=== PATIENT | female | born 1940 | race Caucasian/White ===

== ENCOUNTER → 2019-07-18 13:30 | Outpatient (CLI) | payer MEDICARE, SELFPAY ==
--- NOTE | ~2019-07-18 | MR_ITS ---
EXAMINATION: MR brain/brain stem wo con DATE: 07/18/2019 14:24 INDICATION: Persistent headache with blurred vision TECHNIQUE: Magnetic resonance imaging (MRI) of the brain and brainstem was performed without intraven ous contrast. Sequences included sagittal and axial T1-weighted SE, axial diffusion-weighted FS SE, a xial T2*-weighted GRE, axial T2-weighted FLAIR, and axial T2-weighted FSE. Apparent diffusion coeffic ient (ADC) maps were created. COMPARISON: None. FINDINGS: There are no areas of restricted diffusion to suggest acute infarction. No intracranial hemorrhage or abnormal intracranial mass lesion. Bilateral low-lying cerebellar tonsils extending 3-4 mm below the level of the foramen magnum. There are no intraparenchymal signal abnormalities seen on the other pu lse sequences. Mild increased prominence of the subarachnoid spaces overlying the convexities consist ent with mild age-appropriate diffuse volume loss. Basal cisterns are patent and the ventricles are s ymmetric and normal in size. There are no abnormal extra-axial fluid collections. Flow voids are seen in the cerebral arteries on the T2-weighted sequences consistent with their expected patency. Mild m ucosal thickening the bilateral maxillary sinuses. Changes of bilateral intraocular lens replacement. Small bilateral mastoid effusions. IMPRESSION: 1. Bilateral low-lying cerebellar tonsils which extend 3 to 4 mm below the level of the foramen magnu m. Otherwise normal aging brain. Reviewed, dictated and finalized at location A. IMPRESSION: 1. Bilateral low-lying cerebellar tonsils which extend 3 to 4 mm below the leve l of the foramen magnum. Otherwise normal aging brain.
== END ==
PROVIDERS: PCP Family Medicine Adolescent Medicine; Visit Provider Family Medicine Adolescent Medicine
DX: R51 Headache (principal); H53.8 Other visual disturbances
CPT/HCPCS: 70551

== ENCOUNTER 2020-09-28 13:00 | Outpatient (CLI) | payer MEDICARE, SELFPAY | END 2020-09-28 13:01 | disposition home or self-care (01) | PROVIDERS: PCP Family Medicine Adolescent Medicine; Visit Provider Family Medicine Adolescent Medicine | DX: H91.90 Unspecified hearing loss, unspecified ear (principal) | CPT/HCPCS: 99199 ==

== ENCOUNTER 2020-10-08 12:46 | Outpatient (CLI) | payer MEDICARE, SELFPAY | END 2020-10-08 12:47 | disposition home or self-care (01) | LOC: ANHAUDIO 12:47 | PROVIDERS: PCP Family Medicine Adolescent Medicine; Visit Provider Family Medicine Adolescent Medicine | DX: H90.3 Sensorineural hearing loss, bilateral (principal) | CPT/HCPCS: 92557; 92567 ==

== ENCOUNTER → 2020-10-19 12:29 | Outpatient (CLI) | payer MEDICARE, SELFPAY ==
--- NOTE | ~2020-10-19 | MM_ITS ---
EXAMINATION: MM screening payton BI w cmaila HISTORY: Screening mammogram TECHNIQUE: Craniocaudal and mediolateral oblique 3-D tomosynthesis images were obtained and synthetic 2-D images were generated. CAD analysis was submitted and interpreted. COMPARISON: 05/15/2019, 01/2016, 01/05/2015 bilateral digital screening mammogram examinations BREAST PARENCHYMAL COMPOSITION: The breasts are extremely dense, which lowers the sensitivity of mamm ography. FINDINGS: Occasional benign calcifications. There is no evidence of suspicious mass, calcification, o r architectural distortion to suggest malignancy in either breast. There has been no suspicious inter jarrod change. IMPRESSION: 1. No mammographic evidence of malignancy. 2. Recommend routine screening mammography in one year. BI-RADS Category 2: Benign finding(s). Reviewed, dictated and finalized at location A.
== END ==
PROVIDERS: Visit Provider Family Medicine Adolescent Medicine
DX: Z12.31 Encounter for screening mammogram for malignant neoplasm of breast (principal)
CPT/HCPCS: 77063; 77067

== ENCOUNTER → 2021-10-18 11:21 | Outpatient (CLI) | payer MEDICARE, SELFPAY ==
--- NOTE | ~2021-10-18 | XR_ITS ---
XR chest 2V DATE: 10/18/2021 11:40 INDICATION: Shortness of breath TECHNIQUE: PA and lateral views COMPARISON: 11/11/2015 2 view chest FINDINGS: Bilateral hyperinflation with relative flattening the diaphragm and increased retrosternal airspace, consistent with COPD. There is some infiltrate in the anterior lower lung on the lateral view, apparently in the lingula gi miguel the somewhat shaggy left cardiac margin. The lungs otherwise are clear of infiltrate or consolidation. No pleural effusion or pulmonary vascular congestion or pneumothorax. Heart size is within normal limits. Is aortic arch calcification. Diffuse osteopenia. IMPRESSION: Lingular infiltrate and/or atelectasis COPD Reviewed, dictated and finalized at location A.
== END ==
PROVIDERS: PCP Family Medicine Adolescent Medicine; Visit Provider Family Medicine Adolescent Medicine
DX: R06.02 Shortness of breath (principal); J44.9 Chronic obstructive pulmonary disease, unspecified; R91.8 Other nonspecific abnormal finding of lung field
CPT/HCPCS: 71046

== ENCOUNTER → 2021-11-24 11:15 | Outpatient (CLI) | payer MEDICARE, SELFPAY ==
--- NOTE | ~2021-11-24 | MM_ITS ---
EXAMINATION: MM screening payton BI w camila HISTORY: . TECHNIQUE: Craniocaudal and mediolateral oblique 3-D tomosynthesis images were obtained and synthetic 2-D images were generated. CAD analysis was submitted and interpreted. COMPARISON: 10/19/2020, 05/14/2019, 01/2016 bilateral screening mammogram examinations BREAST PARENCHYMAL COMPOSITION: The breasts are extremely dense, which lowers the sensitivity of mamm ography. FINDINGS: There is no evidence of suspicious mass, calcification, or architectural distortion to sugg est malignancy in either breast. There has been no suspicious interval change. IMPRESSION: 1. No mammographic evidence of malignancy. 2. Recommend routine screening mammography in one year. BI-RADS Category 1: Negative Reviewed, dictated and finalized at location A.
== END ==
PROVIDERS: PCP Family Medicine Adolescent Medicine; Visit Provider Family Medicine Adolescent Medicine
DX: Z12.31 Encounter for screening mammogram for malignant neoplasm of breast (principal)
CPT/HCPCS: 77063; 77067

== ENCOUNTER 2022-02-08 14:37 | Outpatient (CLI) | payer MEDICARE, SELFPAY ==
--- NOTE | 2022-02-20 12:58 | WPDPFTINT ---
PFT Procedure Performed PFT Procedure Performed Spirometry with Pre/Post Bronchodilator Plethysmography (Lung Vol) Diffusing Cap (DLCO) Flow Vol Loop PFT Interpretation DOS: 02/08/2022 REQUESTING: Dr. Joy REASON FOR TESTING: Dyspnea PULMONARY FUNCTION TESTS Results are reliable and reproducible. Spirometry: Pre bronchodilator FEV1 1.99 L, 108%, normal. Pre bronchodilator FVC 2.85 L, 117%, normal. FEV1/FVC 70%, normal. After bronchodilator therapy there is no change in the FEV1. There is 4% change in the FVC, 2.96 L, insignificant. Lung volumes: Total lung capacity 5.88 L, 120% predicted. This is upper limit of normal. Residual volume 3.04 L, 129%, upper limit normal. RV/TLC is 52% normal. Diffusion: DLCO is 11.1 ml/min/mmHg, 59% predicted which is moderately decreased. DLCO/VA is 2.84 ml/min/mmHg/L, 68%, lower end of normal. Flow volume loop: Unremarkable. IMPRESSION: Normal spirometry without response to bronchodilator, normal lung volumes with a trend towards hyperinflation and air trapping, moderate diffusion impairment. The main abnormality on this study is abnormal diffusion impairment. Isolated diffusion impairment can be seen in?early interstitial lung disease,? anemia, chronic thromboembolic disease or chronic thromboembolic pulmonary hypertension, pulmonary vascular disease including collagen vascular disease with pulmonary vascular involvement and smoking. Clinical correlation is advised.? Sanjuana Chavez MD
== END 2022-02-08 14:38 | disposition home or self-care (01) ==
PROVIDERS: PCP Family Medicine Adolescent Medicine; Visit Provider Family Medicine Adolescent Medicine
DX: R06.00 Dyspnea, unspecified (principal)
CPT/HCPCS: 94060; 94726; 94729

== ENCOUNTER 2022-04-10 10:55 | Outpatient (CLI) | payer MEDICARE, SELFPAY ==
--- NOTE | ~2022-04-10 | CT_ITS ---
CT Scan of the Chest without Contrast: Clinical Indication: Shortness of breath, rheumatoid arthritis, covid 19 Technique: Contiguous sections were acquired throughout the chest without intravenous contrast. Dose reduction technique was used on this scan by utilizing automated exposure control and iterative recon struction technique. The dose-length product (DLP) was 133.30 mGy-cm. Findings: There is no evidence of any significant mediastinal, hilar or axillary lymphadenopathy. The mediastin al soft tissues appear normal. There is no evidence of pleural or pericardial effusion. There is minimal scarring in the right middle lobe and lingula. There are scattered focal areas of mi ld tree-in-bud opacity, predominantly in the right middle lobe, lingula, and left lower lobe. Images through the upper abdomen reveal no abnormalities. Impression: Scattered focal areas of tree-in-bud opacity predominantly in the right middle lobe, lingula, and lef t lower lobe, with additional superimposed scarring in the right middle lobe and lingula. Finding are consistent with acute on chronic small airways infection, such as ANUEL. Reviewed, dictated and finalized at [facility]. [employer] Impression: Scattered focal areas of tree-in-bud opacity predominantly in the right middle lobe, lingula, and left lower lobe, with additional superimposed scarring in th e right middle lobe and lingula. Finding are consistent with acute on chronic s mall airways infection, such as ANUEL.
== END 2022-04-10 10:56 | disposition home or self-care (01) ==
PROVIDERS: PCP Family Medicine Adolescent Medicine; Visit Provider Physician Assistant
DX: R06.09 Other forms of dyspnea (principal)
CPT/HCPCS: 71250

== ENCOUNTER 2022-08-28 09:50 | Outpatient (CLI) | payer MEDICARE, SELFPAY | END 2022-08-28 09:51 | disposition home or self-care (01) | LOC: ANHAUDIO 09:51 | PROVIDERS: PCP Family Medicine Adolescent Medicine; Visit Provider Family Medicine Adolescent Medicine | DX: H91.13 Presbycusis, bilateral (principal) | CPT/HCPCS: 92557; 92567 ==

== ENCOUNTER 2022-09-21 07:43 | Outpatient (RCR) | payer MEDICARE, SELFPAY | END 2022-09-21 23:59 | disposition home or self-care (01) | LOC: ANHAUDIO 07:43 | PROVIDERS: PCP Family Medicine Adolescent Medicine; Visit Provider Family Medicine Adolescent Medicine | DX: Z46.1 Encounter for fitting and adjustment of hearing aid (principal) | CPT/HCPCS: 92593 ==

== ENCOUNTER → 2022-11-27 15:34 | Outpatient (CLI) | payer MEDICARE, SELFPAY ==
--- NOTE | ~2022-11-27 | XR_ITS ---
EXAMINATION:XR_CERV2-3V_CR DATE: 11/27/2022 16:01 INDICATION: Neck pain TECHNIQUE: AP, lateral, lateral swimmers and odontoid views of the cervical spine are provided. COMPARISON: None FINDINGS: Exaggerated cervical lordosis. One-2 mm anterolisthesis C4 on C5, C5 on C6 and C7 on T1. 102 mm retro listhesis C6 on C7. Vertebral body heights are normal. Severe disc height loss at C5-C6 and C6-C7. Mi ld disc height loss at C3-C4 with suggestion of posterior bridging osteophytes. Odontoid is intact. M oderate osteoarthritis at the atlantoaxial articulation. Multilevel severe bilateral cervical facet a nd uncovertebral osteoarthritis. Prevertebral soft tissues are normal. Visualized apices of lungs ar e clear. IMPRESSION: 1. Severe cervical spondylosis. Reviewed, dictated and finalized at location B.
== END ==
PROVIDERS: Visit Provider Nurse Practitioner Family
DX: M47.892 Other spondylosis, cervical region (principal)
CPT/HCPCS: 72040

== ENCOUNTER 2022-12-22 13:38 | Outpatient (CLI) | payer MEDICARE, SELFPAY ==
--- NOTE | ~2022-12-22 | CT_ITS ---
EXAMINATION: CT chest high resolution wo co DATE: 12/22/2022 14:12 INDICATION: Abnormal lung findings TECHNIQUE: Computed tomography (CT) of the chest was performed without intravenous contrast. Automate d exposure control and iterative reconstruction technique were employed. Exam dose: 146.83 mGy-cm to yajaira exam DLP. COMPARISON: 04/10/2022 CT chest FINDINGS: There is bilateral chronic stable apical scarring. There is chronic relatively stable scarring and mild tree-in-bud opacities in the middle lobe and alden gula since 04/10/2022. There are increased tree-in-bud opacities in the left lower lobe compared to 04/10/2022, likely secon jaime to infection or inflammatory process. Normal heart size. Normal caliber of the thoracic aorta, with thoracic aortic and great vessel athero sclerotic calcification. No hilar or mediastinal mass lesion or lymphadenopathy. Prominent degenerative disc disease in lower cervical spine and at T11-12. No suspicious osteolytic or osteoblastic lesions are noted. IMPRESSION: Chronic tree-in-bud infiltrates in the middle lobe, lingula and to a greater extent left lower lobe, increased substantially in the left lower lobe since 04/10/2022. The findings are suggestive of infectious or inflammatory process, increased in severity in the left lower lobe since 04/10/2022 Reviewed, dictated and finalized at Location [facility]. Reviewed, dictated and finalized at location A. IMPRESSION: Chronic tree-in-bud infiltrates in the middle lobe, lingula and to a greater extent left lower lobe, increased substantially in the left lower lo be since 04/10/2022. The findings are suggestive of infectious or inflammatory process, increased in severity in the left lower lobe since 04/10/2022
== END 2022-12-22 13:39 | disposition home or self-care (01) ==
PROVIDERS: PCP Family Medicine Adolescent Medicine; Visit Provider Internal Medicine Critical Care Medicine
DX: R06.00 Dyspnea, unspecified (principal); R91.8 Other nonspecific abnormal finding of lung field
CPT/HCPCS: 71250

== ENCOUNTER 2023-01-22 13:19 | Outpatient (CLI) | payer MEDICARE, SELFPAY ==
--- NOTE | ~2023-01-22 | CT_ITS ---
EXAMINATION: CT cervical spine wo con DATE: 01/22/2023 13:43 INDICATION: Neck pain. TECHNIQUE: Computed tomography (CT) of the cervical spine was performed without intravenous contrast. Automated exposure control and iterative reconstruction technique were employed. The dose-length pro duct was 104.08 mGy-cm. COMPARISON: Cervical spine radiographs 11/27/2022 FINDINGS: There is mild scarring at the lung apices. There is a small right mastoid effusion. There i s 2 mm anterolisthesis of C3 on C4, C4 on C5, C5 on C6, and C7 on T1. There is mild kyphosis of lower cervical spine. There is severely decreased disc height at C3-C4 with interbody fusion. There is mil dly decreased disc height at C4-C5 and severely decreased disc height at C5-C6 and C6-C7. At C1-C2, t here is severe osteoarthritis of the right facet joint and anterior atlantoaxial joint. The following disc levels are specifically discussed: C2-C3: There is mild bilateral uncovertebral joint osteoarthritis. There is severe right and mild lef t facet joint osteoarthritis. There is no neural foraminal stenosis. There is no central canal stenos is. C3-C4: There is ankylosis of the uncovertebral joints with mild hypertrophy. There is ankylosis of th e facet joints with mild hypertrophy. There is no neural foraminal stenosis. There is no central cam l stenosis. C4-C5: There is mild bilateral uncovertebral joint osteoarthritis. There is severe bilateral facet sofía int osteoarthritis. There is no neural foraminal stenosis. There is no central canal stenosis. C5-C6: There is severe bilateral uncovertebral joint osteoarthritis. There is severe bilateral facet joint osteoarthritis. There is mild bilateral neural foraminal stenosis. There is mild central canal stenosis. C6-C7: There is severe bilateral uncovertebral joint osteoarthritis. There is severe bilateral facet joint osteoarthritis. There is mild bilateral neural foraminal stenosis. There is mild central canal stenosis. C7-T1: There is no uncovertebral joint osteoarthritis. There is severe bilateral facet joint osteoart hritis. There is mild bilateral neural foraminal stenosis. There is no central canal stenosis. IMPRESSION: 1. Severe cervical spondylosis. Reviewed, dictated and finalized at location A.
== END 2023-01-22 13:20 | disposition home or self-care (01) ==
PROVIDERS: PCP Family Medicine Adolescent Medicine; Visit Provider Neurological Surgery
DX: M47.892 Other spondylosis, cervical region (principal)
CPT/HCPCS: 72125

== ENCOUNTER → 2023-01-24 10:24 | Outpatient (CLI) | payer MEDICARE, SELFPAY ==
--- NOTE | ~2023-01-24 | DEXA_ITS ---
Bone Density Report Name: RASHEED URIAS Age: 82 Sex: Female Ethnicity: White Date of : 1940 Indication: postmenopausal; screening for osteoporosis; height loss; history of glucocorticoids; rheumatoid arthritis; Referring Provider: HANS RODRIGUEZ Study: Bone densitometry was performed. Exam Date: January 24, 2023 Accession number: [id number] Bone Density: Region BMD T-score Z-score Classification AP Spine (L1-L4) 0.961 -0.8 2.0 Normal Femoral Neck (Left) 0.610 -2.2 0.2 Osteopenia Total Hip (Left) 0.790 -1.2 0.9 Osteopenia Femoral Neck (Right) 0.596 -2.3 0.1 Osteopenia Total Hip (Right) 0.779 -1.3 0.8 Osteopenia Total Hip Mean 0.785 -1.3 0.9 Osteopenia World Health Organization criteria for BMD impression classify patients as: Normal (T-score at or above -1.0), Osteopenia (T-score between -1.0 and -2.5), or Osteoporosis (T-score at or below -2.5). 10-year Fracture Risk: FRAX not reported because: Treated for osteoporosis Clinical Information Provided by Patient: Has taken Glucocorticoids Has rheumatoid arthritis Is being treated for osteoporosis Has used the following medications: Fosamax (i.e. alendronate), Vitamin D, Calcium, MTV Patient maximum height was 65.0 Menopause Age: 59 Onset of menses at age 13 Number of children 2 Impression: The patient has low bone mass, based on the Right Femoral Neck T-score. The patient has risk factors, including: history of glucocorticoid therapy. Discussion: It is important to ask patients whether they are taking their medications and to encourage continued and appropriate compliance with their osteoporosis therapies to reduce fracture risk. It is also important to review their risk factors and encourage appropriate calcium and vitamin D intakes, exercise, fall prevention and other lifestyle measures. Follow-Up: Consider a repeat BMD and Vertebral Fracture Assessment (VFA) exam in 2 years or sooner if medically necessary, to reassess this patient's status. Reported by: ROMERO on 01/24/2023 11:44:00 AM. Reviewed, dictated and finalized at location AHaydee SCOTT
== END ==
PROVIDERS: PCP Family Medicine Adolescent Medicine
DX: M81.0 Age-related osteoporosis without current pathological fracture (principal); M85.852 Other specified disorders of bone density and structure, left thigh; M85.851 Other specified disorders of bone density and structure, right thigh
CPT/HCPCS: 77080

== ENCOUNTER → 2023-01-24 10:51 | Outpatient (CLI) | payer MEDICARE, SELFPAY ==
--- NOTE | ~2023-01-24 | MM_ITS ---
EXAMINATION: MM screening payton BI w camila HISTORY: Screening mammogram TECHNIQUE: Craniocaudal and mediolateral oblique 3-D tomosynthesis images were obtained and synthetic 2-D images were generated. CAD analysis was submitted and interpreted. COMPARISON: 11/16/2021, 10/19/2020, 05/14/2019 bilateral screening mammogram examinations BREAST PARENCHYMAL COMPOSITION: The breasts are extremely dense, which lowers the sensitivity of mamm ography. FINDINGS: There is no evidence of suspicious mass, calcification, or architectural distortion to sugg est malignancy in either breast. There has been no suspicious interval change. IMPRESSION: 1. No mammographic evidence of malignancy. 2. Recommend routine screening mammography in one year. BI-RADS Category 1: Negative Reviewed, dictated and finalized at location A.
== END ==
PROVIDERS: PCP Family Medicine Adolescent Medicine; Visit Provider Family Medicine Adolescent Medicine
DX: Z12.31 Encounter for screening mammogram for malignant neoplasm of breast (principal)
CPT/HCPCS: 77063; 77067

== ENCOUNTER 2023-05-09 10:04 | Outpatient (CLI) | payer MEDICARE, SELFPAY ==
--- NOTE | 2023-05-09 12:29 | WPDSIXMINUTE ---
Six Minute Walk Procedure Procedure Performed Pulmonary Stress Test (6 min walk) Six Minute Walk Six Minute Walk: This is a 6 minute walk test. The test was performed and interpreted in accordance with the 2014 ERS/ATS task force guidelines. Findings: The patient's resting room air oxygen saturation measured by pulse oximetry was 98% and heart rate was 77 bpm. Patient ambulated for 305 meters and oxygen saturation remained 95 to 99%. Heart rate at the end of the study was 94 bpm. The patient did not qualify for supplemental oxygen at rest or with ambulation. There are no prior studies for comparison.
--- NOTE | 2023-05-09 12:31 | P.PCNPFT_ITS ---
PFT Procedure Performed PFT Procedure Performed Spirometry with Pre/Post Bronchodilator Plethysmography (Lung Vol) Diffusing Cap (DLCO) Flow Vol Loop PFT Interpretation This is a pulmonary function test with pre and post-bronchodilator spirometry, plethysmography and diffusing capacity. The test was performed and results interpreted in accordance with the 2019 and 2005 ATS/ERS Task Force guidelines respectively using the Global Lung Function Initiative-2012 reference equations. Patient demonstrated good effort and cooperation. Reproducibility criteria were met. The quality of the pre bronchodilator spirometry maneuver was Grade B and post bronchodilator spirometry maneuver was Grade B. Of note, only one acceptable plethysmography trial was obtained. Findings: Spirometry: There is decreased maximal expiratory airflow at all lung volumes. The contour the inspiratory flow tracing is normal. The pre bronchodilator FVC is 3.02 L, 126% predicted. The pre bronchodilator FEV1 is 1.85 L, 102% predicted. The pre bronchodilator FEV1: FVC ratio 61%. The post bronchodilator FVC is 2.78 L, representing an 8% decrease. The post bronchodilator FEV1 is 1.11 L, representing a 40% decrease. The post bronchodilator FEV1: FVC ratio is 40%. Plethysmography: The total lung capacity is 4.12 L, 84% predicted. The functional residual capacity is 2.55 L, 90% predicted. The residual volume is 1.10 L, 46% predicted. Diffusing capacity: The diffusing capacity unadjusted for hemoglobin and carb oxyhemoglobin is 11.6, 62% predicted. The diffusing capacity adjusted for alveolar volume is 2.94, 71% predicted. Impression: There is a mild obstructive abnormality with a normal FEV1. There is no significant improvement after inhaling a single dose of albuterol. Only 1 plethysmography trial was acceptable and using this data the lung volumes are normal. The diffusing capacity unadjusted for hemoglobin and carboxyhemoglobin is mildly decreased and normalizes when adjusted for alveolar volume. Of note, there is a small decrease in the post bronchodilator FVC and a large decrease in the post bronchodilator FEV1 which may be related to technical issue and or patient fatigue. There are no prior studies for comparison
== END 2023-05-09 10:05 | disposition home or self-care (01) ==
PROVIDERS: PCP Family Medicine Adolescent Medicine; Visit Provider Internal Medicine Critical Care Medicine
DX: R91.8 Other nonspecific abnormal finding of lung field (principal); R94.2 Abnormal results of pulmonary function studies
CPT/HCPCS: 94060; 94618; 94726; 94729

== ENCOUNTER 2024-01-24 13:33 | Outpatient (CLI) | payer MEDICARE, SELFPAY ==
--- NOTE | ~2024-01-24 | XR_ITS ---
MODIFIED ESOPHAGRAM HISTORY: Cough while eating TECHNIQUE: Modified barium esophagram was performed on 01/24/2024. I administered fluoroscopy and perf ormed the exam with speech pathologist. Patient was seated for lateral fluoroscopic imaging for michael stion of thin liquids, pudding, solids and quantified amounts, followed by thin liquids in uncontroll ed amounts. This was recorded on tape. A single fluoroscopic spot image was also recorded. The DAP fo r this procedure was 1.359 Gycm2. The amount of fluoroscopy time used during this procedure was 2.3 m inutes. FINDINGS: Oral stage: Adequate function. Pharyngeal stage: Reduced laryngeal elevation and tongue base retraction. Recurrent laryngeal penetra tion without aspiration. Cervical/esophageal stage: Adequate function. IMPRESSION: Pharyngeal dysphagia with laryngeal penetration without aspiration. Please correlate wit h speech pathologist findings and specific feeding recommendations. Reviewed, dictated and finalized at location A. IMPRESSION: Pharyngeal dysphagia with laryngeal penetration without aspiration. Please correlate with speech pathologist findings and specific feeding recomm endations.
--- NOTE | 2024-01-24 14:56 | REHSTMBS ---
Assessment and note entered by Sanjuana Rosales, MENTAL HEALTH PRACTITIONER Modified Barium Swallow Evaluation Feeding Type Recommended Oral Food Consistency Regular, Level 7 Liquid Consistency Thin (0) Treatment Recommendations Effortful Swallow,Laryngeal Elevation Exerc, Yessica Maneuver,Tongue Base Exercise ST Clinical Summary MODIFIED BARIUM SWALLOW STUDY This patient was seen for a Modified Barium Swallow study at the request of her physician. Patient reports that she had developed a consistent cough around the time of COVID (2019) and she and her physician narrowed down the cough to mainly when she eats or drinks something. She reported that both food and liquids could trigger her cough almost every time she consumes food or drink. Patient stated she was not interested in using thickener in her liquids as her late had that issue and he would not drink the thickened liquids. The patient was viewed in the lateral position to the level of C5/C6. Patient was presented with thin liquid contrast medium per spoon, per cup, and per straw, pudding mixed with semi-solid contrast medium, and fruit cocktail and one inch square of murtaza cracker, both coated with the semi-solid mixture. She exhibited the following impairments: Oral Stage: None. Pharyngeal Stage: Reduced laryngeal elevation and base of tongue retraction contributing to reduced epiglottal inversion resulting in penetration on all consistencies, avoided with head flexion. Cricopharyngeal Stage: None. Results suggest this patient is at risk for aspiration on all consistencies; she has been avoiding aspiration/pneumonia secondary to an effective reflexive cough that clears penetrated material. Head flexion on both solids and liquids did prevent any additional penetration into the airway. Patient may remain on Regular Diet and Liquid consistencies however, she should use head flexion
== END 2024-01-24 13:34 | disposition home or self-care (01) ==
PROVIDERS: PCP Family Medicine Adolescent Medicine; Referring Provider Internal Medicine Critical Care Medicine; Visit Provider Family Medicine Adolescent Medicine
DX: R13.13 Dysphagia, pharyngeal phase (principal); R05.3 Chronic cough
CPT/HCPCS: 92611

== ENCOUNTER 2024-03-11 10:46 | Outpatient (RCR) | payer MEDICARE, SELFPAY ==
--- NOTE | 2024-03-11 13:03 | STOPEVAL1 ---
Assessment and note entered by Sanjuana Rosales RECREATION ATTENDANT Evaluation Information Assessment Status Evaluation ICD-10 Condition Codes (ST) R13.12 Subjective Information The patient reports that she has had a cough for several months. She stated that she noticed that the coughing occurred moreso when eating and drinking at meals. Reported Pain Level Pain Score 0: Self Report Assessment ST Clinical Summary BEDSIDE SWALLOW EVALUATION AND TREATMENT SUMMARY Patient was seen for a follow-up Bedside Swallow Evaluation along with a therapy treatment session, first to assess current swallowing skills since Modified Barium Swallow study, and then for instruction of safe swallowing techniques, swallowing strengthening exercises, and gastroesophageal reflux disease (GERD) guidelines in the event that GERD is contributing to her coughing during meals. Patient was seen for a previous Modified Barium Swallow study on 01/24/24 which revealed penetration into the airway on all consistencies, including thin liquids, pureed, and solid consistencies. At that time she was instructed in the use of head flexion to prevent penetration, and hard swallows to complete independently as patient was leaving town on vacation within a day or two of that evaluation. Today she reports she uses head flexion and it does seem to help but also is intimidated thinking that people are staring at her while she is using head flexion, but she also expressed she does not want people to look at her while eating because of the coughing. She also indicated she remembered the effortful swallow exercise but did not indicate that she had completed them on a regular basis. Today the patient consumed water and murtaza cracker using head flexion and exhibited no signs of aspiration. Treatment: Patient was presented with first, gastroesophageal guidelines as she reported a history of reflux, which she still suffers from, and Shelley's esophagus, which she stated had improved and was not a current issue. At the same time, patient reported that she can feel a heaviness in her chest up to four hours after eating a meal after lying down in bed at night, and then she begins to cough. Patient agreed to follow the common guidelines of elevating the head of the bed (or using extra pillows to assist), avoiding citrus fruit and tomato products, avoiding chocolate and carbonated beverages, small meals, using medication prescribed by physician. Patient voiced good understanding of guidelines. Patient was instructed in the use of safe swallowing strategies: small bites and sips, chew thoroughly, use head flexion while swallowing, alternate solids and liquids, use gravy, sauces to add moisture to dry foods, avoid foods that seem to contribute to the coughing, and other suggestions. She voiced good understanding of suggestions. Patient was instructed in the use of hard, effortful swallows, swallows with chin tuck against resistance, chin tuck against resistance without hard swallows, and laryngeal elevation exercises. She completed each exercise 10 repetitions with good response. She voiced good understanding of list of strengthening exercises. Other appropriate exercises were not taught today since she will not be returning for at least two weeks and therapist would want a short time in between initial and follow up sessions to assess her ability to understand and complete them. Patient agreed to continue the home exercise program along with following guidelines while out of town for the next 10 days. Because patient is leaving town, she was hesitant to make a return appointment. Therapist will contact patient upon patient return to discuss progress and to determine need for any additional therapy sessions at that time. If patient agrees to return, exercises will be reviewed and swallowing will be re-assessed with need to continue to be determined at that time. Additional exercises may be added to her treatment program if she does return. Thank you for this referral. Plan of Care Interventions Treatment of Swallowing D ST Services Indicated Yes Treatment Frequency and 1-2 visits in one month Duration These treatments will address the objective and functional deficits as defined above. The patient will be advanced safely and appropriately in order for the patient to progress towards his/her prior level of function. Additional exercises will be introduced and as well as a comprehensive home exercise program upon discharge, if needed, ?to ensure carryover of functional gains achieved in the clinic. This treatment plan has been reviewed and agreement upon by the patient.
--- NOTE | 2024-03-20 09:57 | STOPDC ---
Assessment and note entered by Sanjuana Rosales RN [employer] Evaluation Information Assessment Status Discharge - Pt Not Presen Assessment ST Clinical Summary DISCHARGE SUMMARY Patient was seen for an initial evaluation of her swallowing at the outpatient center after previously demonstrating difficulty on a Modified Barium Swallow study with complaint of cough. She was was instructed in the use of gastroesophageal guidelines, safe swallowing techniques including use of head flexion when swallowing, and swallowing strengthening exercises. She went on vacation the day after and agreed to complete the program over the ten days she would be out of town. Patient was contacted 03/20 and she reported that her coughing had subsided and that she felt the head flexion contributed to the reduced coughing. Patient is discharged at this time with goals achieved. She may contact this therapist any time she has concerns about her swallowing in the future. Plan of Care ST Services Indicated No
== END 2024-04-14 12:25 | disposition home or self-care (01) ==
LOC: ANHST 10:46
PROVIDERS: PCP Family Medicine Adolescent Medicine; Visit Provider Family Medicine Adolescent Medicine
DX: R13.10 Dysphagia, unspecified (principal)
CPT/HCPCS: 92526; 92610

== ENCOUNTER 2024-05-30 15:53 | Outpatient (CLI) | payer MEDICARE, SELFPAY ==
--- NOTE | ~2024-05-30 | CT_ITS ---
EXAMINATION:CT diagnostic chest wo con DATE: 05/30/2024 16:23 INDICATION: Other nonspecific abnormal finding of lung field. TECHNIQUE: Computed tomography (CT) of the chest was performed without intravenous contrast. Automate d exposure control and iterative reconstruction technique were employed. The dose-length product (DLP ) was 129.98 mGy-cm. COMPARISON: Chest CT 12/22/2022 FINDINGS: There is mild scarring at the lung apices. There is bronchiectasis in right middle lobe and lingula. There are centrilobular nodules and tree-in-bud opacities in the right middle lobe, lingula , and left lower lobe. There is a new 10 mm nodule in right middle lobe. No pleural effusion. The hea rt size is normal. There are coronary artery calcifications. No pericardial effusion. There is mild m ediastinal lymphadenopathy, likely reactive. There is severe cervical, thoracic, and lumbar spondylos is. IMPRESSION: 1. 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 2. New 10 mm nodule in right middle lobe, probably infection. Consider noncontrast low-dose chest CT in 3-6 months to exclude malignancy. Reviewed, dictated and finalized at location A. CHARD GRINDER OPERATOR IMPRESSION: 1. Multifocal lung disease with a lower lung predominance with areas of improve ment and areas of worsening, consistent with chronic infection such as Mycobact erium avium intracellulare (ANUEL). 2. New 10 mm nodule in right middle lobe, probably infection. Consider noncontr ast low-dose chest CT in 3-6 months to exclude malignancy.
--- OUTSIDE RECORDS SUMMARY | 2024-05-30 15:57 | XMS_ITS | Encounter Summary ---
Author Organization [facility] Healthcare Address [address] [place] [address] Care Team Providers Care Computer Trainer Name Role Phone Cholo Joy MD Primary Care Prov ider Reason for Referral * MRI/CAT/PET Scan (Routine) - Closed Specialty Diagnoses / Procedures Referred By Contac t Referred To Contact Radiology Diagnoses Rheumatoid arthritis of cervical spine (HCC) Procedures MRI Cervical Spine WO Contrast Paris Sandoval MD [address] [place] [address] [address] [place] [address] Phone: tel: fax: [address] [phone] Referral ID Status Reason Start Date Expiration Date Visits Re quested Visits Authorized [id number] Closed 05/14/2024 11/12/2024 1 1 ER ASSEMBLER Reason for Visit * MRI/CAT/PET Scan (Routine) - Closed Specialty Diagnoses / Procedures Referred By Contac t Referred To Contact Radiology Diagnoses Rheumatoid arthritis of cervical spine (HCC) Procedures MRI Cervical Spine WO Contrast Paris Sandoval MD [address] [place] [address] [address] [place] [address] Phone: tel: fax: [facility] [id number] [phone] Referral ID Status Reason Start Date Expiration Date Visits Re quested Visits Authorized [id number] Closed 05/14/2024 11/12/2024 1 1 Encounter Details Date Type Department Care Team (Latest Contact Info) Description 05/29/2024 1:06 PM PRIMER ASSEMBLER - 05/29/2024 11:59 PM PRIMER ASSEMBLER Hospital Encounter [facility] [id number] [id number] Rheumatoid arthritis of cervical spine (HCC) Discharge Disposition: Discharge to home or self care Social History Tobacco Use Types Packs/Day Years Used Date Smoking Tobacco: Never Smokeless Tobacco: Never Alcohol Use Standard Drinks/Week Comments No 0 (1 standard drink = 0.6 oz pur e alcohol) AUDIT-C Answer Date Recorded Q1: How often do you have a drink containing alc ohol? Never 07/31/2022 Average Number of Drinks Not on file 023 Frequency of Binge Drinking Not on file 06/2022 Comments Unknown Sex and Gender Information Value Date Recorded Sex Assigned at Not on file Legal Sex Female 2:43 AM PRIMER ASSEMBLER Gender Identity Female 11/16/2019 10:01 AM CDT Sexual Orientation Not on file documented as of this encounter Medications at Time of Discharge adalimumab (HUMIRA, CF, PEN) 40 mg/0.4 mL pen injector kit Inject 0.4 mL (40 mg total) under the skin every 14 (fourteen) days 6 each 1 03/06/2024 alendronate (FOSAMAX) 35 mg tablet TAKE 1 TABLET BY MOUTH EVERY 7 DAYS WITH FULL GLASS OF WATER AND ON AN EMPTY STOMACH. DO NOT EAT OR LIE DOWN FOR 30 MINUTES 12 tablet 3 07/20/2023 atorvastatin (LIPITOR) 20 mg tablet Take 1 tablet (20 mg total) by mouth daily 03/05/2024 calcium citrate-vitamin D3 (CITRACAL+D) 315-200 mg-unit per tablet Take by mouth. 600 mg twice daily D[address] (CYMBALTA) 30 mg capsule Take 1 capsule (30 mg total) by mouth daily 06/14/2023 famotidine (PEPCID) 20 mg tablet 2 (two) times a day 10/17/2021 folic acid (FOLVITE) 1 mg tablet TAKE 1 TABLET(1000 MCG) BY MOUTH DAILY 90 tablet 2 11/19/2023 gabapentin (NEURONTIN) 300 mg capsule 11/09/2022 ipratropium (ATROVENT) 42 mcg (0.06 %) nasal spray every morning 06/27/2022 LORazepam (ATIVAN) 0.5 mg tablet Take 1 tablet (0.5 mg total) by mouth every 6 (six) hours as needed for anxiety methotrexate 2.5 mg tablet TAKE 3 TABLETS(7.5 MG) BY MOUTH 1 TIME EVERY 7 DAYS 38 tablet 2 03/31/2024 multivit-minerals /ferrous fum (MULTI VITAMIN ORAL) daily. omega-3 fatty acids 500 mg capsule 1200 mg 3 times daily predniSONE (DELTASONE) 2.5 mg tabletIndications :autoimmune disease Take 1 tablet (2.5 mg) by mouth daily 90 tablet 1 12/05/2023 documented as of this encounter Discharge Disposition Disposition Code Departure Means Destination Discharge to home or self care documented in this encounter Plan of Treatment Not on file documented as of this encounter Procedures Procedure Name Priority Date/Time Associated Diagnosis Comments MRI CERVICAL SPINE WO CONTRAST Schedule Routine, Read Routine (OP Routine) 05/29/2024 1:46 PM PRIMER ASSEMBLER Rheumatoid arthritis of cervical spine (HCC) documented in this encounter Results * MRI Cervical Spine WO Contrast (05/29/2024 1:46 PM PRIMER ASSEMBLER) Anatomical Region Laterality Modality Spine N/A Magnetic Resonan ce 05/29/2024 2:42 PM PRIMER ASSEMBLER Impressions 05/29/2024 4:15 PM PRIMER ASSEMBLER 1. ??Stable osseous edema of the right atlantoaxial joint and C1-C2 lateral masses with small atlantoaxial joint effusion. 2. ??Multilevel degenerative changes of the cervical spine as described above. Dictated by: Shayne Rodriguez M.D. The radiology attending physician has personally reviewed this study, and had reviewed and/or edited this written report and agrees with it. 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 COMPARISON: MRI cervical spine 08/02/2023. FINDINGS: Mild stepwise anterior subluxation of C4 on C5 on C6, C6 and C7, C7 on T1, T1-T2, T2 on T3 and T3 on T4. ??There is ankylosis of the C3-C4 vertebral bodies posteriorly. ??There is stable osseous edema within the right atlantoaxial joint with small right atlantoaxial joint effusion. ??There are Modic type III degenerative endplate changes at C5-C6 and C6-C7. ??Degenerative changes are seen at the craniocervical junction with retrotonsillar soft tissue thickening. ??No acute fracture is identified. ??The visualized portions of the skull base and the posterior fossa are normal. The spinal cord demonstrates normal signal intensity on all sequences. There is diffuse disc desiccation and disc height loss ??No soft tissue abnormality is identified. Normal signal voids are present in the vertebral arteries. C2-C3: The disk is normal in configuration. There is mild bilateral facet arthropathy. There is no uncovertebral joint disease. There is no neuroforaminal stenosis. There is no spinal canal stenosis. C3-C4: Shallow disc osteophyte complex There is mild facet arthropathy. There is no uncovertebral joint disease. There is mild bilateral neuroforaminal stenosis. There is no spinal canal stenosis. C4-C5: Shallow disc osteophyte complex There is mild facet arthropathy. There is mild right uncovertebral joint disease. There is mild bilateral neuroforaminal stenosis. There is no spinal canal stenosis. C5-C6: Small bulging disc osteophyte complex There is mild ??facet arthropathy. There is mild bilateral uncovertebral joint disease. There is mild bilateral neuroforaminal stenosis. There is mild spinal canal stenosis. C6-C7: Bulging disc osteophyte complex. There is mild facet arthropathy. There is moderate bilateral uncovertebral joint disease. There is moderate bilateral neuroforaminal stenosis. There is moderate spinal canal stenosis. C7-T1: Small bulging disc osteophyte complex. There is mild facet arthropathy. There is mild uncovertebral joint disease. There is mild bilateral neuroforaminal stenosis. There is no spinal canal stenosis. 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 COMPARISON: MRI cervical spine 08/02/2023. FINDINGS: Mild stepwise anterior subluxation of C4 on C5 on C6, C6 and C7, C7 on T1, T1-T2, T2 on T3 and T3 on T4. There is ankylosis of the C3-C4 vertebral bodies posteriorly. There is stable osseous edema within the right atlantoaxial joint with small right atlantoaxial joint effusion. There are Modic type III degenerative endplate changes at C5-C6 and C6-C7. Degenerative changes are seen at the craniocervical junction with retrotonsillar soft tissue thickening. No acute fracture is identified. The visualized portions of the skull base and the posterior fossa are normal. The spinal cord demonstrates normal signal intensity on all sequences. There is diffuse disc desiccation and disc height loss No soft tissue abnormality is identified. Normal signal voids are present in the vertebral arteries. C2-C3: The disk is normal in configuration. There is mild bilateral facet arthropathy. There is no uncovertebral joint disease. There is no neuroforaminal stenosis. There is no spinal canal stenosis. C3-C4: Shallow disc osteophyte complex There is mild facet arthropathy. There is no uncovertebral joint disease. There is mild bilateral neuroforaminal stenosis. There is no spinal canal stenosis. C4-C5: Shallow disc osteophyte complex There is mild facet arthropathy. There is mild right uncovertebral joint disease. There is mild bilateral neuroforaminal stenosis. There is no spinal canal stenosis. C5-C6: Small bulging disc osteophyte complex There is mild facet arthropathy. There is mild bilateral uncovertebral joint disease. There is mild bilateral neuroforaminal stenosis. There is mild spinal canal stenosis. C6-C7: Bulging disc osteophyte complex. There is mild facet arthropathy. There is moderate bilateral uncovertebral joint disease. There is moderate bilateral neuroforaminal stenosis. There is moderate spinal canal stenosis. C7-T1: Small bulging disc osteophyte complex. There is mild facet arthropathy. There is mild uncovertebral joint disease. There is mild bilateral neuroforaminal stenosis. There is no spinal canal stenosis. IMPRESSION: 1. Stable osseous edema of the right atlantoaxial joint and C1-C2 lateral masses with small atlantoaxial joint effusion. 2. Multilevel degenerative changes of the cervical spine as described above. Dictated by: Shayne Rodriguez M.D. The radiology attending physician has personally reviewed this study, and had reviewed and/or edited this written report and agrees with it. Electronically signed by: Liam Souza MD, PHD us Paris Sandoval MD IMG MRI PROCEDURES Final Res ult documented in this encounter Visit Diagnoses Diagnosis Rheumatoid arthritis of cervical spine (HCC) documented in this encounter Care Teams Computer Trainer Relationship Specialty Start Date End Date Cholo Joy MD [address] [place] [id number] PCP - General 10/04/16 documented as of this encounter
--- OUTSIDE RECORDS SUMMARY | 2024-05-30 15:57 | XMS_ITS | Encounter Summary ---
Author Organization [facility] Address [address] [place] [address] Care Team Providers Care Program Management Manager Name Role Phone Cholo Joy MD Primary Care Provider [phone] Encounter Details Date Type Department Care Team (Late st Contact Info) Description 02/11/2007 Outpatient Historical [facility] Flako Miller MD [address] [place] [address] Other and Unspecified Noninfectious Gastroenteritis and Colitis (Primary Dx) Social History Tobacco Use Types Packs/Day Years Used Date Smoking Tobacco: Never Assessed Comments Unknown Sex and Gender Information Value Date Recorded Sex Assigned at Not on file Legal Sex Female 5:07 AM UNIT CONTROL WORKER Gender Identity Not on file Sexual Orientation Not on file documented as of this encounter Plan of Treatment Not on file documented as of this encounter Visit Diagnoses Diagnosis Other and unspecified noninfectious gastroenteritis and colitis(558.9)- Primary Other and unspecified noninfectious gastroenteritis and colitis documented in this encounter Care Teams Program Management Manager Relationship Specialty Start Date End Date Cholo Joy MD [address] [facility] [address] [place] [address] PCP - General 12/21/08 documented as of this encounter
--- OUTSIDE RECORDS SUMMARY | 2024-05-30 15:57 | XMS_ITS | Clinical Summary ---
Author Organization [facility] al Address [address] [place] [address] Care Team Providers Care Program Lead Name Role Phone Cholo Joy MD Primary Care Prov ider Allergies Active Allergy Reactions Criticality Noted Date Comments Other Vomiting Low 11/14/2017 Sodium pentothal Phenobarbital Vomiting Low 05/12/2017 Shellfish Containing Products Vomiting Low 2018 Medications calcium citrate-vitami n D3 (CITRACAL+D) 315-200 mg-unit per tablet Take by mouth. 600 mg twice daily Active omega-3 fatty acids 500 mg capsule 1200 mg 3 times daily Active multivit-estate tax examiner als/ferrous fum (MULTI VITAMIN ORAL) daily. Active LORazepam (ATIVAN) 0.5 mg tablet Take 1 tablet (0.5 mg total) by mouth every 6 (six) hours as needed for anxiety Active famotidine (PEPCID) 20 mg tablet 2 (two) times a day 10/18/19 22 Active ipratropium (ATROVENT) 42 mcg (0.06 %) nasal spray every morning 06/27/19 23 Active gabapentin (NEURONTIN) 300 mg capsule 11/10/19 23 Active alendronate (FOSAMAX) 35 mg tablet TAKE 1 TABLET BY MOUTH EVERY 7 DAYS WITH FULL GLASS OF WATER AND ON AN EMPTY STOMACH. DO NOT EAT OR LIE DOWN FOR 30 MINUTES 12 tablet 3 07/20/[address] (CYMBALTA) 30 mg capsule Take 1 capsule (30 mg total) by mouth daily 06/14/19 24 Active folic acid (FOLVITE) 1 mg tablet TAKE 1 TABLET(1000 MCG) BY MOUTH DAILY 90 tablet 2 11/19/19 24 Active predniSONE (DELTASONE) 2.5 mg tabletIndicati ons:autoimmune disease Take 1 tablet (2.5 mg) by mouth daily 90 tablet 1 12/05/19 24 Active adalimumab (HUMIRA, CF, PEN) 40 mg/0.4 mL pen injector kit Inject 0.4 mL (40 mg total) under the skin every 14 (fourteen) days 6 each 1 03/06/20 24 Active methotrexate 2.5 mg tablet TAKE 3 TABLETS(7.5 MG) BY MOUTH 1 TIME EVERY 7 DAYS 38 tablet 2 03/31/20 24 Active atorvastatin (LIPITOR) 20 mg tablet Take 1 tablet (20 mg total) by mouth daily 03/05/20 24 Active cholestyramine (QUESTRAN) 4 gram powder as needed 06/21/19 23 025 Discontinued(Th erapy completed) diphenoxylate- atropine (LOMOTIL) 2.5-0.025 mg per tablet as needed 05/15/19 23 025 Discontinued gabapentin (NEURONTIN) 100 mg capsule TAKE 1 CAPSULE(100 MG) BY MOUTH THREE TIMES DAILY. TAKE WITH 300 MG DOSE 270 capsule 08/20/19 24 025 Discontinued Active Problems Problem Noted Date Diagnosed Date Hyperglycemia 12/06/2023 Assessment & Plan (12/06/2023 6:32 PM CDT): Patient reports that she had had high carbohydrate load prior to getting her blood drawn but this will need to be reassessed and I have asked her to try and decrease her steroid use to every other day Rheumatoid arthritis of cervical spine 4 Cervical pain (neck) 02/03/2023 Assessment & Plan (02/03/2023 6:30 AM CDT): Pain is severe and unremitting. Based on the reports, I a.m. concerned there may be an inflammatory component from her rheumatoid arthritis given the atlantoaxial involvement. She also has bridging osteophytes present. There does not appear to be instability based on the report but I do not have the images to review and I discussed with the patient, she would benefit from a pain management consultation to see if this is amenable to an epidural injection. She has no warning signs or symptoms to suggest myelopathy. I have recommended that she increase her gabapentin to twice daily to help with the pain As well as she may increase her prednisone to daily. I have asked her to update me after she sees her surgeon. Paresthesia and pain of left extremity 2 Assessment & Plan (07/31/2022 12:12 PM CDT): Excellent pain relief on low-dose gabapentin Thoracic spine pain 01/31/2021 High risk medication use 04/10/2018 Assessment & Plan (10/14/2018 2:13 PM CDT): We reviewed monitoring laboratory tests today and these are entirely stable. Age-related osteoporosis wit hout current pathological fracture 04/10/2018 Overview (02/11/2019): DXA repeat needed 09/2020 Assessment & Plan (02/03/2023 6:31 AM CDT): The patient reports she had a bone density performed locally which I discussed with her cannot be compared exactly with her bone densities here but await receipt of this to determine ongoing need of Fosamax. Assessment & Plan (07/31/2022 12:11 PM CDT): We will repeat bone densities and 25 hydroxy vitamin-D levels: Congratulated her on doing strength training so hopefully we will see improvement on her next studies Assessment & Plan (10/14/2018 2:13 PM CDT): I personally reviewed her bone densities and they are stable on her current dose of alendronate and we will continue current therapy. Assessment & Plan (04/10/2018 1:10 PM QUANTITATIVE RESEARCHER): Tolerating alendronate and will be due for bone densities in September Abnormal liver function tests 11/13/2017 Assessment & Plan (11/14/2017 9:22 PM CDT): Transaminases were a 1-1/2 x above the upper limits of normal on only a minimal dose of methotrexate. She is on a statin as well. 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 Assessment & Plan (11/14/2017 9:23 PM CDT): She has chronic back pain with some referred pain down the leg that may be related to radicular symptoms. She also has restless legs. I discussed considering a low- dose of gabapentin at bedtime to see if this would be of help give her a more restorative sleep. I would like to obtain dedicated back films to assess the degree of her degenerative disc disease and osteoarthritis Chronic renal impairment 10/04/2016 Dry mouth 08/17/2015 Raynaud's disease 08/17/2015 Rheumatoid arthritis involvi ng multiple sites with positive rheumatoid factor ([facility]) 08/17/2015 Overview (11/13/2017): CCP+ Assessment & Plan (02/03/2023 6:39 AM CDT): Her peripheral disease appears well controlled but the severity of her neck pain with image report suggests prior activity in the atlantoaxial region without erosions but also bridging osteophytes. Optimally contrast would of been used to see if there is enhancing synovium but there are at least no warning signs of impending myelopathy. I will assess for systemic inflammation today with normal CRP and ESR. I have obtained is CBC and CMP which reveals stability of her blood counts with mild macrocytosis but no significant anemia. Her renal insufficiency is stable and I will maintain her on her current dose of mtx since liver function tests are normal. I recommend updated influenza vaccine, COVID vaccine and hold mtx week of her vaccine Assessment & Plan (07/31/2022 6:12 PM CDT): She is doing well on her current regimen. I reviewed monitoring laboratories which should be performed quarterly as she has underlying renal insufficiency and has had episodes of transaminitis on methotrexate. She has significant pain from her degenerative changes Assessment & Plan (11/17/2019 5:19 PM CDT): She is having pain in a few D IP joints and I pulled up her last radiographs of her hands. 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 I recommended that she use diclofenac gel, add a compression glove at nighttime and continue her current regimen. She will follow up with me for a [id number] visit in 3 months Assessment & Plan (02/12/2019 11:09 AM CDT): I feel the inflammatory component of her disease is reasonably well controlled but she has significant underlying osteoarthritis that impacts on her disease activity scores. She is not tolerant of increase methotrexate and we reviewed her most recent monitoring laboratories. There is no evidence of systemic inflammation. I am going to make no changes in her current regimen. Her MCV is slightly higher and we will watch this carefully to see if she needs increased folic acid. She has had an influenza vaccine. She has a great deal of stress from her 's diagnosis and I spent 25 minutes [id number] counseling her in this regard as she has significant anxiety related to her own disease but does not self-care as much as she should and has sleep disturbance Assessment & Plan (10/14/2018 2:13 PM CDT): CCP positive rheumatoid arthritis with underlying history compatible with erosive OA as well. Her physical examination is difficult to follow and I recommend updated hand films to assess for progression on her current regimen. In addition she has had known degenerative spinal disease but I would like to check to see if there is superimposed osteoarthritis of her hip as well. She has done physical therapy for her spine and has had persistent discomfort. If this is persistent, I would recommend follow- up with Physical Medicine and rehab. Assessment & Plan (11/14/2017 9:21 PM CDT): Clinically she was doing well on her current regimen of low-dose methotrexate weekly plus hydroxychloroquine daily; however if she has a significant worsening transaminitis on such a low dose, we will not be able to continue it so I will await her repeat hepatic function. Encounters Date Type Department Care Team Description 05/29/2024 1:06 PM QUANTITATIVE RESEARCHER - 05/29/2024 11:59 PM QUANTITATIVE RESEARCHER Hospital Encounter [facility] [address] [place] [address] Rheumatoid arthritis of cervical spine (HCC) Discharge Disposition: Discharge to home or self care 05/07/2024 11:40 AM QUANTITATIVE RESEARCHER Office Visit [facility] [address] [place] [address] [address] [place] [id number] Paris Sandoval MD 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); Rheumatoid arthritis of cervical spine (HCC); High risk medication use 04/16/2024 Telephone [facility] [address] [place] [id number] Sammy Nickerson RPh 03/04/2024 Orders Only [facility] [address] [place] [address] [address] [place] [id number] Gertrude Lund CMA 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); High risk medication use from Last 3 Months Surgical History Surgery Date Site/Laterality Comments CATARACT EXTRACTION Bilateral ROTATOR CUFF REPAIR Right Family History Medical History Relation Name Comments Arthritis Mother Family history of arthritis - (Added by TW Conv) Cancer Mother Family history of malignant neoplasm - (Added by TW Conv) Relation Name Status Comments Mother Social History Tobacco Use Types Packs/Day Years Used Date Smoking Tobacco: Never Smokeless Tobacco: Never Tobacco Cessation:Counseling Given: Not Answered Alcohol Use Standard Drinks/Week Comments No 0 [...] on file Legal Sex Female 2:43 AM QUANTITATIVE RESEARCHER Gender Identity Female 11/16/2019 10:01 AM CDT Sexual Orientation Not on file Obstetrics History Last Filed Vital Signs Vital Sign Reading Time Taken Comments Blood Pressure 135/67 05/07/2024 11:46 AM QUANTITATIVE RESEARCHER Pulse 60 05/07/2024 11:46 AM QUANTITATIVE RESEARCHER Temperature 36.8 ??C (98.2 ??F) 05/07/2024 11:[address] Respiratory Rate 16 12/05/2023 12:24 PM CDT Oxygen Saturation 100% 05/07/2024 11:46 AM QUANTITATIVE RESEARCHER Inhaled Oxygen Concentration - - Weight 52 kg (114 lb 9.6 oz) 05/07/2024 11:46 AM QUANTITATIVE RESEARCHER Height 160 cm (5' 3 ) 05/07/2024 11:46 AM QUANTITATIVE RESEARCHER Body Mass Index 20.3 05/07/2024 11:46 AM QUANTITATIVE RESEARCHER Plan of Treatment Health Maintenance Due Date Last Done Comments Depression Screening 1940 Fall Risk Assessment 1940 Pneumococcal vaccine 65+ (1 of 2 - PCV) 1946 DTaP/Tdap/Td Vaccine (1 - Tdap) 11/07/1951 Hepatitis B Screening 1958 Zoster Vaccine (1 of 2) 11/07/1959 Well Visit 65+ 2005 Osteoporosis Screening-Bone Density Scan 01/27/2023 01/27/2021, 10/10/2018 Influenza Vaccine (#1) 2023 01/31/2017 Procedures Procedure Name Priority Date/Time Associated Diagnosis Comments MRI CERVICAL SPINE WO CONTRAST Schedule Routine, Read Routine (OP Routine) 05/29/2024 1:46 PM QUANTITATIVE RESEARCHER Rheumatoid arthritis of cervical spine (HCC) ERYTHROCYTE SEDIMENTATION RATE Routine 03/10/2024 1:05 PM QUANTITATIVE RESEARCHER CRP (ACUTE PHASE) Routine 03/10/2024 1:0 5 PM QUANTITATIVE RESEARCHER 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) High risk medication use COMPREHENSIVE METABOLIC PANEL Routine 03/10/2024 1:05 PM QUANTITATIVE RESEARCHER 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) High risk medication use CBC WITH AUTO DIFFERENTIAL Routine 03/10/2024 1:05 PM QUANTITATIVE RESEARCHER 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) High risk medication use DEXA AXIAL SKELETON BONE DENSITY 1 OR MORE SITES Schedule Routine, Read Routine (OP Routine) 01/27/2021 1:06 PM CDT Age-related osteoporosis without current pathological fracture from Last 3 Months or Most Recently Relevant to Health Maintenance Results * MRI Cervical Spine WO Contrast (05/29/2024 1:46 PM QUANTITATIVE RESEARCHER) Anatomical Region Laterality Modality Spine N/A Magnetic Resonan ce 05/29/2024 2:42 PM QUANTITATIVE RESEARCHER Impressions 05/29/2024 4:15 PM QUANTITATIVE RESEARCHER 1. ??Stable osseous edema of the right [...] Souza MD, PHD Narrative 05/29/2024 4:15 PM QUANTITATIVE RESEARCHER EXAMINATION: Magnetic resonance imaging (MRI) of the [...] Electronically signed by: Liam Souza MD, PHD Paris Sandoval MD IMG MRI PROCEDURES Final Res ult * (ABNORMAL) CBC with auto differential (03/10/2024 1:05 PM QUANTITATIVE RESEARCHER) WBC 7.1 3.8 - 10.8 Thousand/u L [facility] RBC, POC 3.55(L) 3.80 - 5.10 Million/uL [facility] Hgb 12.1 11.7 - 15.5 g/dL [facility] Hct 37.7 35.0 - 45.0 % [facility] MCV 106.2(H) 80.0 - 100.0 fL [facility] MCH 34.1(H) 27.0 - 33.0 pg [facility] MCHC 32.1 32.0 - 36.0 g/dL [facility] Comment: For adults, a slight decrease in the calculated MCHC value (in the range of 30 to 32 g/dL) is most likely not clinically significant; however, it should be interpreted with caution in correlation with other red cell parameters and the patient's clinical condition. Rdw 12.9 11.0 - 15.0 % [facility] Platelets 214 140 - 400 Thousand/u L [facility] MPV 10.4 7.5 - 12.5 fL [facility] Neutrophils, abs 4,210 1,500 - 7,800 cells/uL [facility] Lymphocytes, abs 2,251 850 - 3,900 cells/uL [facility] Monocyte abs 525 200 - 950 cells/uL [facility] Eosinophils, abs 71 15 - 500 cells/uL [facility] Basophils, abs 43 0 - 200 cells/uL [facility] Neutrophils 59.3 % [facility] Lymphocyte pct 31.7 % [facility] Monocytes 7.4 % [facility] Eosinophils 1.0 % [facility] Basophils 0.6 % [facility] Blood 03/10/2024 1:05 PM QUANTITATIVE RESEARCHER 03/10/2024 1:06 PM QUANTITATIVE RESEARCHER Paris Sandoval MD LAB BLOOD ORDERABLES Final R esult Performing Organization Address [facility]/ZIP Co de Phone Number [facility] [address] [place] [address] * Erythrocyte sedimentation rate (03/10/2024 1:05 PM QUANTITATIVE RESEARCHER) Pathologist [facility] Erythrocyte sedimentation rate 19 < OR = 30 mm/h [facility] 03/10/2024 1:05 PM QUANTITATIVE RESEARCHER 03/10/2024 1:06 PM QUANTITATIVE RESEARCHER Paris Sandoval MD LAB BLOOD ORDERABLES Final R esult Performing Organization Address [facility] Co de Phone Number [facility] [address] [place] [address] * CRP (acute phase) (03/10/2024 1:05 PM QUANTITATIVE RESEARCHER) Pathologist [facility] C-RP <3.0 <8.0 mg/L [facility] Blood 03/10/2024 1:05 PM QUANTITATIVE RESEARCHER 03/10/2024 1:06 PM QUANTITATIVE RESEARCHER Result [facility] Paris Sandoval MD LAB BLOOD ORDERABLES Final R esult Performing Organization Address City/[facility] Co de Phone Number [facility] [address] [place] [address] * (ABNORMAL) Comprehensive metabolic panel (03/10/2024 1:05 PM QUANTITATIVE RESEARCHER) Glucose 94 65 - 99 mg/dL [facility] Comment: ? Fasting reference interval BUN 26(H) 7 - 25 mg/dL [facility] Creatinine 1.27(H) 0.60 - 0.95 mg/dL [facility] eGFR 42(L) > OR = 60 mL/min/1.7 3m2 [facility] BUN/creat ratio 20 6 - 22 (calc) [facility] Sodium 139 135 - 146 mmol/L [facility] Potassium, pl 4.9 3.5 - 5.3 mmol/L [facility] Chloride 102 98 - 110 mmol/L [facility] CO2 30 20 - 32 mmol/L [facility] Calcium 9.7 8.6 - 10.4 mg/dL [facility] Protein, sr 6.9 6.1 - 8.1 g/dL [facility] Albumin 4.1 3.6 - 5.1 g/dL [facility] GLOBULIN 2.8 1.9 - 3.7 g/dL (calc) [facility] Alb/glob ratio 1.5 1.0 - 2.5 (calc) [facility] Bilirubin, total 0.6 0.2 - 1.2 mg/dL [facility] Alk phos 76 37 - 153 U/L [facility] AST 35 10 - 35 U/L [facility] ALT (SGPT) 23 6 - 29 U/L [facility] Blood 03/10/2024 1:05 PM QUANTITATIVE RESEARCHER 03/10/2024 1:06 PM QUANTITATIVE RESEARCHER us Paris Sandoval MD LAB BLOOD ORDERABLES Final R esult [facility] [address] [place] [address] * Dexa Axial Skeleton Bone Density 1 or 2 Site (01/27/2021 1:06 PM CDT) Anatomical Region Laterality Modality Body N/A Radiographic Cha ging Narrative 01/29/2021 1:44 PM CDT Patient Name: Emelyn Nicole Date of : 1940 Date of scan: 01/27/2021 Bone mineral density was performed on a HoloO[employer] Discovery Densitometer. ?? Based on machine cross-calibration and precision studies the least significant changes of this densitometer is 0.024 g/cm2 at the spine, 0.020 g/cm2 at the total proximal femur, and 0.014g/cm2 at the forearm. HISTORY: This is a 80 y.o. postmenopausal female with a history of low bone mass, rheumatoid arthritis and ulcerative colitis. She reports that she has never smoked. She has never used smokeless tobacco. She is currently on treatment with calcium, vitamin D, alendronate (Fosamax) and glucocorticoids; and was previously treated with ibandronate (Boniva) and hormone replacement therapy. She has a current complaint of back pain, neck pain and leg pain. INDICATIONS: Menopause status, treatment monitoring, history of glucocorticoids use, currently on 7.5 mg weekly of glucocorticoids for the past 4 year(s) and history of low bone mass. FINDINGS: BONE MINERAL DENSITY OF THE LUMBAR SPINE Bone Mineral Density (BMD) of the lumbar spine was measured from L1-L3 and the average density was calculated to be 0.903 gm/cm2. This corresponds to a T-score (standard deviations from the mean of young adults) of -1.0. When compared to the previous study of 10/10/2018 there has been no significant changes in bone density. BONE MINERAL DENSITY OF THE PROXIMAL FEMUR Bone Mineral Density (BMD) of the left hip total was found to be 0.801 gm/cm2. This corresponds to a T-score standard deviations from the mean of young adults of -1.2. Femoral neck is 0.721 gm/cm2 with a T-score (standard deviations from the mean of young adults) of -1.2. When compared to the previous study of 10/10/2018 there has been no significant changes in bone density. SUMMARY: Bone mineral density shows evidence of low bone mass at the proximal femur and moderately increased fracture risk (Osteopenia). There has been no significant changes in bone density since previous measurement. L4 excluded from bone mineral density analysis of the lumbar spine because of bone density being more than 1 standard deviation discrepant relative to one adjacent vertebra. ??Clinical correlation is recommended. Please note the previous spine scan was reanalyzed to provide accurate comparison. ADDITIONAL COMMENTS: Postmenopausal Women and Men Over 50: Diagnostic criteria: Osteoporosis: BMD at or below -2.5 T-score; Osteopenia (low bone mass): BMD between -1.0 and -2.5 T-score. If the patient has a history of a fragility fracture, a fracture that occurred with trauma equivalent to a fall from a standing position or less, then the diagnosis is osteoporosis regardless of bone density. The history and data sections of the bone mineral density scan were prepared by Etta Lomas (R)(CBDT) who is accredited by the International Society of Clinical Densitometry. The overall patient assessment and scan interpretation were performed by Yeison Crowe M.D. who is certified by the International Society of Clinical Densitometry. [id number] us Paris Sandoval MD IMG DXA PROCEDURES Final Res ult from Last 3 Months or Most Recently Relevant to Health Maintenance Insurance [employer] Address: [address] [address] [place] [address] [facility] MEDICARE [employer] MEDICARE Care Teams Program Lead Relationship Specialty Start Date End Date Cholo Joy MD [address] [place] [address] PCP - General 10/04/16
--- OUTSIDE RECORDS SUMMARY | 2024-05-30 15:57 | XMS_ITS | Encounter Summary ---
Author Organization [facility] Address [address] [place] [address] Care Team Providers Care Biofuels Production Associate Name Role Phone Cholo Joy MD Primary Care Provider [phone] Encounter Details Date Type Department Care Team (Late st Contact Info) Description 04/01/2007 Outpatient Historical [facility] Flako Miller MD [address] [place] [address] Social History Tobacco Use Types Packs/Day Years Used Date Smoking Tobacco: Never Assessed Comments Unknown Sex and Gender Information Value Date Recorded Sex Assigned at Not on file Legal Sex Female 5:07 AM SLATE ROOFER HELPER Gender Identity Not on file Sexual Orientation Not on file documented as of this encounter Plan of Treatment Not on file documented as of this encounter Visit Diagnoses Not on filedocumented in this encounter Care Teams Biofuels Production Associate Relationship Specialty Start Date End Date Cholo Joy MD [address] [place] [address] [address] [place] [id number] PCP - General 12/21/08 documented as of this encounter
--- OUTSIDE RECORDS SUMMARY | 2024-05-30 15:57 | XMS_ITS | Clinical Summary ---
Author Organization [facility] Address [address] [place] [address]. [place] [address] Care Team Providers Care Transformer Molder Name Role Phone Unavailable Primary Care Provider Unavailabl e Social History Tobacco Use Types Packs/Day Years Used Date Smoking Tobacco: Never Assessed Comments Unknown Sex and Gender Information Value Date Recorded Sex Assigned at Not on file Legal Sex Female 7:39 PM CDT Gender Identity Not on file Sexual Orientation Not on file Plan of Treatment Health Maintenance Due Date Last Done Comments DTaP, Tdap and Td Vaccines ( 1 - Tdap) 11/07/1959 Zoster Vaccines (1 of 2) 1990 Dexa Scan (General) 2005 Pneumococcal Vaccine: 65+ Ye ars (1 of 1 - PCV) 2005 RSV Immunization or 60+ Years (1 - 1-dose 75+ series) 11/07/2015 COVID-19 Vaccine ( - 2023-2 5 season) 2023 Influenza Adult (#1) 2024 Meningococcal B Vaccine Aged Out No l onger eligible based on patient's age to complete this topic Meningococcal Vaccine Aged Out No karmen марина eligible based on patient's age to complete this topic RSV Immunizations Under 20 Months Aged Out No longer eligible based on patient's age to complete this topic
--- OUTSIDE RECORDS SUMMARY | 2024-05-30 15:57 | XMS_ITS | Encounter Summary ---
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 Gender Identity Female 11/16/2019 10:01 AM CDT Sexual Orientation Not on file documented as of this encounter Plan of Treatment Not on file documented as of this encounter Procedures Procedure Name Priority Date/Time Associated Diagnosis Comments SCAN - RADIOLOGY/IMAGING 01/24/2023 documented in this encounter Results * SCAN - RADIOLOGY/IMAGING (01/24/2023) Anatomical Region Laterality Modality Other us Provider Scanning Edited Result - Final documented in this encounter Visit Diagnoses Not on filedocumented in this encounter Care Teams Graphics Software Engineer Relationship Specialty Start Date End Date Cholo Joy MD [address] [place] [address] PCP - General 10/04/16 documented as of this encounter
--- OUTSIDE RECORDS SUMMARY | 2024-05-30 15:57 | XMS_ITS | Referral Summary ---
Author Organization [facility] Address [address] [place] [address] Care Team Providers Care Credit Office Manager Name Role Phone Cholo Joy MD Primary Care Prov ider Encounters Date Type Department Care Team Description 05/29/2024 1:06 PM SALESPERSON BURIAL NEEDS - 05/29/2024 11:59 PM SALESPERSON BURIAL NEEDS Hospital Encounter [facility] [address] [place], [place] [id number] Rheumatoid arthritis of cervical spine (HCC) Discharge Disposition: Discharge to home or self care 05/07/2024 11:40 AM SALESPERSON BURIAL NEEDS Office Visit [facility] [address] [place] [address] [address] [place] [address] Paris Sandoval MD 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); Rheumatoid arthritis of cervical spine (HCC); High risk medication use 04/16/2024 Telephone [facility] [address] [place] [address] Sammy Nickerson RPh 03/04/2024 Orders Only [facility] [address] [place] [address] Office [address] [place] [address] Gertrude Lund, AYO 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 600 mg twice daily Active omega-3 fatty acids 500 mg capsule 1200 mg 3 times daily Active multivit-employment appeals examiner als/ferrous fum (MULTI VITAMIN ORAL) daily. [...] other day Rheumatoid arthritis of cervical spine Cervical pain (neck) 02/03/2023 Assessment & Plan [...] surgeon. Paresthesia and pain of left extremity Assessment & Plan (07/31/2022 12:12 PM CDT): Excellent pain relief on low-dose gabapentin Thoracic spine pain 01/31/2021 High risk medication use 04/10/2018 Assessment & Plan (10/14/2018 2:13 PM CDT): We reviewed monitoring laboratory tests today and these are entirely stable. Age-related osteoporosis rhea benson current pathological fracture 04/10/2018 Overview (02/11/2019): DXA [...] therapy. Assessment & Plan (04/10/2018 1:10 PM SALESPERSON BURIAL NEEDS): Tolerating alendronate and will be due for [...] numbness Assessment & Plan (04/10/2018 1:11 PM SALESPERSON BURIAL NEEDS): Clinically her pain has improved with physical [...] ng multiple sites with positive rheumatoid factor ([facility]) 08/17/2015 Overview (11/13/2017): CCP+ Assessment & Plan [...] will follow up with me for a [id number] visit in 3 months Assessment & Plan [...] 's diagnosis and I spent 25 minutes [id number] counseling her in this regard as she [...] I will await her repeat hepatic function. Social History Tobacco Use Types Packs/Day Years [...] on file Legal Sex Female 2:43 AM SALESPERSON BURIAL NEEDS Gender Identity Female 11/16/2019 10:01 AM CDT Sexual Orientation Not on file Last Filed Vital Signs Vital Sign Reading Time Taken Comments Blood Pressure 135/67 05/07/2024 11:46 AM SALESPERSON BURIAL NEEDS Pulse 60 05/07/2024 11:46 AM SALESPERSON BURIAL NEEDS Temperature 36.8 ??C (98.2 ??F) 05/07/2024 11:[address] Respiratory Rate 16 12/05/2023 12:24 PM CDT Oxygen Saturation 100% 05/07/2024 11:46 AM SALESPERSON BURIAL NEEDS Inhaled Oxygen Concentration - - Weight 52 kg (114 lb 9.6 oz) 05/07/2024 11:46 AM SALESPERSON BURIAL NEEDS Height 160 cm (5' 3 ) 05/07/2024 11:46 AM SALESPERSON BURIAL NEEDS Body Mass Index 20.3 05/07/2024 11:46 AM SALESPERSON BURIAL NEEDS Plan of Treatment Not on file Procedures Procedure Name Priority Date/Time Associated Diagnosis Comments MRI CERVICAL SPINE WO CONTRAST Schedule Routine, Read Routine (OP Routine) 05/29/2024 1:46 PM SALESPERSON BURIAL NEEDS Rheumatoid arthritis of cervical spine (HCC) ERYTHROCYTE SEDIMENTATION RATE Routine 03/10/2024 1:05 PM SALESPERSON BURIAL NEEDS CRP (ACUTE PHASE) Routine 03/10/2024 1:0 5 PM SALESPERSON BURIAL NEEDS 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) High risk medication use COMPREHENSIVE METABOLIC PANEL Routine 03/10/2024 1:05 PM SALESPERSON BURIAL NEEDS 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) High risk medication use CBC WITH AUTO DIFFERENTIAL Routine 03/10/2024 1:05 PM SALESPERSON BURIAL NEEDS 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 ??Stable osseous edema of the right [...] Souza MD, PHD Narrative 05/29/2024 4:15 PM SALESPERSON BURIAL NEEDS EXAMINATION: Magnetic resonance imaging (MRI) of the [...] CBC with auto differential (03/10/2024 1:05 PM SALESPERSON BURIAL NEEDS) WBC 7.1 3.8 - 10.8 Thousand/u L [...] Diagnostics-S t Ifeanyi Blood 03/10/2024 1:05 PM SALESPERSON BURIAL NEEDS 03/10/2024 1:06 PM SALESPERSON BURIAL NEEDS Paris Sandoval MD LAB BLOOD ORDERABLES Final R esult Performing Organization Address City/[facility]/RUST Co de Phone Number [facility] [address] [place] [address] * Erythrocyte sedimentation rate (03/10/2024 1:05 PM SALESPERSON BURIAL NEEDS) Erythrocyte sedimentation rate 19 < OR = 30 mm/h [facility] 03/10/2024 1:05 PM SALESPERSON BURIAL NEEDS 03/10/2024 1:06 PM SALESPERSON BURIAL NEEDS Paris Sandoval MD LAB BLOOD ORDERABLES Final R esult Performing Organization Address City/[facility]/ZIP Co de Phone Number [facility] [address] [place] [address] * CRP (acute phase) (03/10/2024 1:05 PM SALESPERSON BURIAL NEEDS) Pathologist [facility] C-RP <3.0 <8.0 mg/L [facility] Blood 03/10/2024 1:05 PM SALESPERSON BURIAL NEEDS 03/10/2024 1:06 PM SALESPERSON BURIAL NEEDS us Paris Sandoval MD LAB BLOOD ORDERABLES Final R esult [facility] [address], [place] [address] * (ABNORMAL) Comprehensive metabolic panel (03/10/2024 1:05 PM SALESPERSON BURIAL NEEDS) [facility] Glucose 94 65 - 99 mg/dL [facility] Comment: ? Fasting reference interval BUN 26(H) 7 - 25 mg/dL [facility] Creatinine 1.27(H) 0.60 - 0.95 mg/dL [facility] eGFR 42(L) > OR = 60 mL/min/1.7 3m2 [facility] BUN/creat ratio 20 6 - 22 (calc) [facility] Sodium 139 135 - 146 mmol/L [facility] Potassium, pl 4.9 3.5 - 5.3 mmol/L [facility] Chloride 102 98 - 110 mmol/L [facility] CO2 30 20 - 32 mmol/L [facility] Calcium 9.7 8.6 - 10.4 mg/dL [facility] Protein, sr 6.9 6.1 - 8.1 g/dL [facility] Albumin 4.1 3.6 - 5.1 g/dL [facility] GLOBULIN 2.8 1.9 - 3.7 g/dL (calc) [facility] Alb/glob ratio 1.5 1.0 - 2.5 (calc) [facility] Bilirubin, total 0.6 0.2 - 1.2 mg/dL [facility] Alk phos 76 37 - 153 U/L [facility] AST 35 10 - 35 U/L [facility] ALT (SGPT) 23 6 - 29 U/L [facility] Blood 03/10/2024 1:05 PM SALESPERSON BURIAL NEEDS 03/10/2024 1:06 PM SALESPERSON BURIAL NEEDS us Paris Sandoval MD LAB BLOOD ORDERABLES Final R esult [facility] [address] [place] [address] * Dexa Axial Skeleton Bone Density 1 or 2 Site (01/27/2021 1:06 PM CDT) Anatomical Region Laterality Modality Body N/A Radiographic Cha ging Narrative 01/29/2021 1:44 PM CDT Patient Name: Emelyn Nicole Date of : 1940 Date of scan: 01/27/2021 Bone mineral density was performed on a [email or web address] Discovery Densitometer. ?? Based on machine cross-calibration [...] by the International Society of Clinical Densitometry. [id number] Paris Sandoval MD IMG DXA PROCEDURES Final Res ult from Last 3 Months or Most Recently Relevant to Health Maintenance Insurance MEDICARE SOLUTIONS AET MEDICARE AET MEDICARE Care Teams Credit Office Manager Relationship Specialty Start Date End Date Cholo Joy MD [address] [place] [address] [facility] - General 10/04/16
--- OUTSIDE RECORDS SUMMARY | 2024-05-30 15:57 | XMS_ITS | Continuity of Care Document ---
Author Organization [facility] Address [address] [place] [address] Phone Care Team Providers Care Pest Controller Assistant Name Role Phone Giovani Zepeda MD Unavailable Unavailable Procedures Procedure Date Office/outpatient visit,[facility] 2005 Advance Directives Directive Yes / No Effective Date File Name No Information Encounters Encounter Description Practice Location Reason(s) For Visit Diagnoses Date Provider Providers Copied on Encounter Office/outpat ient visit,[facility], [address] [place] [address], [id number], tel:[phone] [facility] No Information [address]. [address] [place] [address], [address], [id number] , . tel:[phone] Family History Family Member Type Diagnosis Age At Onset No Information Payers Payer name Insurance type Covered alliance party ID Authoriza titerrell(s) Cigna [place] [employer] [id number] Social History Type Description Quantity Date Captured Comments Sex Female Smoking Status No Information Chief Complaint And Reason For Visit No Information Reason For Referral Reason For Referral No Information History Of Present Illness Encounter Date Complaint History Of Prese nt Illness No Information Functional Status Date Functional Assessmen t No Information Instructions Date Instruction Additional Infor mation No Information Assessments Type Assessment Date No Information Patient Care Teams Name Effective Dates (start - stop) Status Members No Information
--- OUTSIDE RECORDS SUMMARY | 2024-05-30 15:57 | XMS_ITS | Encounter Summary ---
Author Organization [facility] Address [address] [place] [address] Phone Care Team Providers Care Data Processing Clerk Name Role Phone Cholo Joy MD Primary Care Prov ider Encounter Details Date Type Department Care Team (Late st Contact Info) Description 01/23/2023 Orders Only [facility] Scanning, Provider Social [...] on file Legal Sex Female 2:43 AM ASSOCIATE PATHOLOGIST Gender Identity Female 11/16/2019 10:01 AM CDT Sexual Orientation Not on file documented as of this encounter Plan of Treatment Not on file documented as of this encounter Procedures Procedure Name Priority Date/Time Associated Diagnosis Comments SCAN - RADIOLOGY/IMAGING 01/23/2023 documented in this encounter Results * SCAN - RADIOLOGY/IMAGING (01/23/2023) Anatomical Region Laterality Modality Other us Provider Scanning Final Result documented in this encounter Visit Diagnoses Not on filedocumented in this encounter Care Teams Data Processing Clerk Relationship Specialty Start Date End Date Cholo Joy MD [address] [place] [address] PCP - General 10/04/16 documented as of this encounter
--- OUTSIDE RECORDS SUMMARY | 2024-05-30 15:57 | XMS_ITS | Encounter Summary ---
Author Organization [facility] Address [address] [place] [address] Phone Care Team Providers Care Grill Prep Cook Name Role Phone Cholo Joy MD Primary Care Prov ider Encounter Details Date Type Department Care Team (Late st Contact Info) Description 01/24/2024 Orders Only [facility] Scanning, Provider Social [...] on file Legal Sex Female 2:43 AM CONCRETE FORM SETTER Gender Identity Female 11/16/2019 10:01 AM CDT Sexual Orientation Not on file documented as of this encounter Plan of Treatment Not on file documented as of this encounter Procedures Procedure Name Priority Date/Time Associated Diagnosis Comments SCAN - RADIOLOGY/IMAGING 01/24/2024 documented in this encounter Results * SCAN - RADIOLOGY/IMAGING (01/24/2024) Anatomical Region Laterality Modality Other us Provider Scanning Final Result documented in this encounter Visit Diagnoses Not on filedocumented in this encounter Care Teams Grill Prep Cook Relationship Specialty Start Date End Date Cholo Joy MD [address] [place] [address] PCP - General 10/04/16 documented as of this encounter
--- OUTSIDE RECORDS SUMMARY | 2024-05-30 15:57 | XMS_ITS | Clinical Summary ---
Author Organization [facility] Address [address] Attn: Epic Prelude ADT ROQUE CASTILLO [phone] Care Team Providers Care Field Service Technician Name Role Phone Cholo Jyo MD Primary Care Provider [phone] Social History Tobacco Use Types Packs/Day Years Used Date Smoking Tobacco: Never Assessed Comments Unknown Sex and Gender Information Value Date Recorded Sex Assigned at Not on file Legal Sex Female 5:07 AM CORROSION ENGINEER Gender Identity Not on file Sexual Orientation Not on file Plan of Treatment Health Maintenance Due Date Last Done Comments DTAP/TDAP/TD VACCINES (1 - Tdap) 11/07/1959 PNEUMOCOCCAL VACCINE 65+ YEA RS (1 of 2 - PCV) 11/07/1959 ZOSTER VACCINE (1 of 2) 11/07/1959 RSV VACCINE (60+ or ) (1 - 1-dose 75+ series) 11/07/2015 INFLUENZA VACCINE (#1) 2023 01/31/2017 OSTEOPOROSIS SCREENING Completed , 01/27/2021, 10/10/2018 Care Teams Field Service Technician Relationship Specialty Start Date End Date Cholo Joy MD [address] [facility] [address] [place] [address] PCP - General 12/21/08
--- OUTSIDE RECORDS SUMMARY | 2024-05-30 15:57 | XMS_ITS | Encounter Summary ---
Author Organization [facility] Address [address] [place] [address] Care Team Providers Care Ventilating Expert Name Role Phone Cholo Joy MD Primary Care Provider [phone]- [phone] Encounter Details Date Type Department Care Team (Late st Contact Info) Description 02/18/2007 Outpatient Historical [facility] Flako Miller MD [address] [place] [address] [place] [address] [place] Ulcerative (Chronic) Colitis (CMS/HCC) (Primary Dx) Social History Tobacco Use Types Packs/Day Years Used Date Smoking Tobacco: Never Assessed Comments Unknown Sex and Gender Information Value Date Recorded Sex Assigned at Not on file Legal Sex Female 5:07 AM LOG SAWYER Gender Identity Not on file Sexual Orientation Not on file documented as of this encounter Plan of Treatment Not on file documented as of this encounter Visit Diagnoses Diagnosis [place] ulcerative (chronic) colitis(556.6) (CMS/HCC)- Primary [place] ulcerative (chronic) colitis documented in this encounter Care Teams Ventilating Expert Relationship Specialty Start Date End Date Cholo Joy MD [address] [facility] [address] [place] [address] PCP - General 12/21/08 documented as of this encounter
--- OUTSIDE RECORDS SUMMARY | 2024-05-30 15:57 | XMS_ITS | Encounter Summary ---
Author Organization [facility] Address [address] [place] [address] Phone Care Team Providers Care Private Wealth Advisor Name Role Phone Cholo Joy MD Primary Care Prov ider Encounter Details Date Type Department Care Team (Late st Contact Info) Description 11/27/2022 Orders Only [facility] Scanning, Provider Social [...] on file Legal Sex Female 2:43 AM SKATING CARHOP Gender Identity Female 11/16/2019 10:01 AM CDT Sexual Orientation Not on file documented as of this encounter Plan of Treatment Not on file documented as of this encounter Procedures Procedure Name Priority Date/Time Associated Diagnosis Comments SCAN - RADIOLOGY/IMAGING 11/27/2022 documented in this encounter Results * SCAN - RADIOLOGY/IMAGING (11/27/2022) Anatomical Region Laterality Modality Other us Provider Scanning Final Result documented in this encounter Visit Diagnoses Not on filedocumented in this encounter Care Teams Private Wealth Advisor Relationship Specialty Start Date End Date Cholo Joy MD [address] [place] [address] PCP - General 10/04/16 documented as of this encounter
--- OUTSIDE RECORDS SUMMARY | 2024-05-30 15:57 | XMS_ITS | Encounter Summary ---
Author Organization [facility] Address [address] [place] [address] Phone Care Team Providers Care Glueline Worker Name Role Phone Cholo Joy MD Primary Care Prov ider Encounter Details Date Type Department Care Team (Late st Contact Info) Description 12/22/2022 Orders Only [facility] Scanning, Provider Social [...] on file Legal Sex Female 2:43 AM TELEHEALTH CASE MANAGER Gender Identity Female 11/16/2019 10:01 AM CDT Sexual Orientation Not on file documented as of this encounter Plan of Treatment Not on file documented as of this encounter Procedures Procedure Name Priority Date/Time Associated Diagnosis Comments SCAN - RADIOLOGY/IMAGING 12/22/2022 documented in this encounter Results * SCAN - RADIOLOGY/IMAGING (12/22/2022) Anatomical Region Laterality Modality Other us Provider Scanning Final Result documented in this encounter Visit Diagnoses Not on filedocumented in this encounter Care Teams Glueline Worker Relationship Specialty Start Date End Date Cholo Joy MD [address] [place] [address] PCP - General 10/04/16 documented as of this encounter
== END 2024-05-30 15:54 | disposition home or self-care (01) ==
PROVIDERS: PCP Family Medicine Adolescent Medicine; Visit Provider Internal Medicine Critical Care Medicine
DX: R91.8 Other nonspecific abnormal finding of lung field (principal)
CPT/HCPCS: 71250

== ENCOUNTER 2024-06-03 13:39 | Outpatient (CLI) | payer MEDICARE, SELFPAY ==
--- OUTSIDE RECORDS SUMMARY | 2024-06-03 13:50 | XMS_ITS | Encounter Summary ---
Author Organization [facility] Address [address] [place] [address] Care Team Providers Care Organ Fixer Name Role Phone Cholo Joy MD Primary Care Provider [phone]- [phone] Encounter Details Date Type Department Care Team (Late st Contact Info) Description 02/18/2007 Outpatient Historical [facility] Flako Miller MD [address] [place] [address] [place] [address] [place] Ulcerative (Chronic) Colitis (CMS/HCC) (Primary Dx) Social History Tobacco Use Types Packs/Day Years Used Date Smoking Tobacco: Never Assessed Comments Unknown Sex and Gender Information Value Date Recorded Sex Assigned at Not on file Legal Sex Female 5:07 AM BUSINESS JOB TITLES Gender Identity Not on file Sexual Orientation Not on file documented as of this encounter Plan of Treatment Not on file documented as of this encounter Visit Diagnoses Diagnosis [place] ulcerative (chronic) colitis(556.6) (CMS/HCC)- Primary [place] ulcerative (chronic) colitis documented in this encounter Care Teams Organ Fixer Relationship Specialty Start Date End Date Cholo Joy MD [address] [facility] [address] [place] [address] PCP - General 12/21/08 documented as of this encounter
--- OUTSIDE RECORDS SUMMARY | 2024-06-03 13:50 | XMS_ITS | Encounter Summary ---
Author Organization [facility] Address [address] [place] [address] Phone Care Team Providers Care Geoscience Technician Name Role Phone Cholo Joy MD Primary [...] on file Legal Sex Female 2:43 AM STATISTICS INTERN Gender Identity Female 11/16/2019 10:01 AM CDT [...] on filedocumented in this encounter Care Teams Geoscience Technician Relationship Specialty Start Date End Date Cholo Joy MD [address] [place] [address] PCP - General 10/04/16 documented as of this encounter
--- OUTSIDE RECORDS SUMMARY | 2024-06-03 13:50 | XMS_ITS | Encounter Summary ---
Author Organization [facility] Address [address] [place] [address] Care Team Providers Care Field Marketing Specialist Name Role Phone Cholo Joy MD Primary Care Provider +1- [phone] Encounter Details Date Type Department Care Team (Late st Contact Info) Description 04/01/2007 Outpatient Historical [facility] Flako Miller MD [address] [place] [address] Social History Tobacco Use Types Packs/Day Years Used Date Smoking Tobacco: Never Assessed Comments Unknown Sex and Gender Information Value Date Recorded Sex Assigned at Not on file Legal Sex Female 5:07 AM REPRODUCTION ORDER PROCESSOR Gender Identity Not on file Sexual Orientation Not on file documented as of this encounter Plan of Treatment Not on file documented as of this encounter Visit Diagnoses Not on filedocumented in this encounter Care Teams Field Marketing Specialist Relationship Specialty Start Date End Date Cholo Joy MD [address] [place] [address] [address] [place] [address] PCP - General 12/21/08 documented as of this encounter
--- OUTSIDE RECORDS SUMMARY | 2024-06-03 13:50 | XMS_ITS | Clinical Summary ---
Author Organization [facility] Address [address] [place] [address] Care Team Providers Care Bottom Steep Tender Name Role Phone Cholo Joy MD Primary [...] capsule 1200 mg 3 times daily Active multivit-naturalization examiner als/ferrous fum (MULTI VITAMIN ORAL) daily. [...] therapy. Assessment & Plan (04/10/2018 1:10 PM FILLING MACHINE OPERATOR): Tolerating alendronate and will be due for [...] numbness Assessment & Plan (04/10/2018 1:11 PM FILLING MACHINE OPERATOR): Clinically her pain has improved with physical [...] ng multiple sites with positive rheumatoid factor ([facility]) 08/17/2015 Overview (11/13/2017): CCP+ Assessment & Plan [...] will follow up with me for a [id number] visit in 3 months Assessment & Plan [...] 's diagnosis and I spent 25 minutes [id number] counseling her in this regard as she [...] Department Care Team Description 05/29/2024 1:06 PM FILLING MACHINE OPERATOR - 05/29/2024 11:59 PM FILLING MACHINE OPERATOR Hospital Encounter [facility] [address] [place] [address] Rheumatoid arthritis of cervical spine (HCC) Discharge Disposition: Discharge to home or self care 05/07/2024 11:40 AM FILLING MACHINE OPERATOR Office Visit [facility] Rheumatology [address] [place] [address] [address] [place] [address] Paris Sandoval MD 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); Rheumatoid arthritis of cervical spine (HCC); High risk medication use 04/16/2024 Telephone [facility] [address] [place] [address] Sammy Nickerson RPh 03/04/2024 Orders Only [facility] Rheumatology [address] [place] [address] Office [address] [place] [address] Gertrude Lund CMA Rheumatoid arthritis involving multiple [...] on file Legal Sex Female 2:43 AM FILLING MACHINE OPERATOR Gender Identity Female 11/16/2019 10:01 AM CDT Sexual Orientation Not on file Obstetrics History Last Filed Vital Signs Vital Sign Reading Time Taken Comments Blood Pressure 135/67 05/07/2024 11:46 AM FILLING MACHINE OPERATOR Pulse 60 05/07/2024 11:46 AM FILLING MACHINE OPERATOR Temperature 36.8 ??C (98.2 ??F) 05/07/2024 11:[address] Respiratory Rate 16 12/05/2023 12:24 PM CDT Oxygen Saturation 100% 05/07/2024 11:46 AM FILLING MACHINE OPERATOR Inhaled Oxygen Concentration - - Weight 52 kg (114 lb 9.6 oz) 05/07/2024 11:46 AM FILLING MACHINE OPERATOR Height 160 cm (5' 3 ) 05/07/2024 11:46 AM FILLING MACHINE OPERATOR Body Mass Index 20.3 05/07/2024 11:46 AM FILLING MACHINE OPERATOR Plan of Treatment Health Maintenance Due Date [...] Read Routine (OP Routine) 05/29/2024 1:46 PM FILLING MACHINE OPERATOR Rheumatoid arthritis of cervical spine (HCC) ERYTHROCYTE SEDIMENTATION RATE Routine 03/10/2024 1:05 PM FILLING MACHINE OPERATOR CRP (ACUTE PHASE) Routine 03/10/2024 1:0 5 PM FILLING MACHINE OPERATOR 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) High risk medication use COMPREHENSIVE METABOLIC PANEL Routine 03/10/2024 1:05 PM FILLING MACHINE OPERATOR 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) High risk medication use CBC WITH AUTO DIFFERENTIAL Routine 03/10/2024 1:05 PM FILLING MACHINE OPERATOR 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 ??Stable osseous edema of the right [...] Souza MD, PHD Narrative 05/29/2024 4:15 PM FILLING MACHINE OPERATOR EXAMINATION: Magnetic resonance imaging (MRI) of the [...] CBC with auto differential (03/10/2024 1:05 PM FILLING MACHINE OPERATOR) WBC 7.1 3.8 - 10.8 Thousand/u L [...] Diagnostics-S t Ifeanyi Blood 03/10/2024 1:05 PM FILLING MACHINE OPERATOR 03/10/2024 1:06 PM FILLING MACHINE OPERATOR Paris Sandoval MD LAB BLOOD ORDERABLES Final R esult Performing Organization Address [facility]/ZIP Co de Phone Number [facility] [address] [place] [address] * Erythrocyte sedimentation rate (03/10/2024 1:05 PM FILLING MACHINE OPERATOR) Pathologist [facility] Erythrocyte sedimentation rate 19 < OR = 30 mm/h [facility] 03/10/2024 1:05 PM FILLING MACHINE OPERATOR 03/10/2024 1:06 PM FILLING MACHINE OPERATOR Paris Sandoval MD LAB BLOOD ORDERABLES Final R esult Performing Organization Address [facility] Co de Phone Number [facility] [address] [place] [address] * CRP (acute phase) (03/10/2024 1:05 PM FILLING MACHINE OPERATOR) Pathologist [facility] C-RP <3.0 <8.0 mg/L [facility]Jane[facility] Blood 03/10/2024 1:05 PM FILLING MACHINE OPERATOR 03/10/2024 1:06 PM FILLING MACHINE OPERATOR Result [facility] Paris Sandoval MD LAB BLOOD ORDERABLES Final R esult Performing Organization Address City/[facility] Co de Phone Number [facility] [address] [place] [address] * (ABNORMAL) Comprehensive metabolic panel (03/10/2024 1:05 PM FILLING MACHINE OPERATOR) Glucose 94 65 - 99 mg/dL [facility] Comment: ? Fasting reference interval BUN [...] pl 4.9 3.5 - 5.3 mmol/L [facility] Chloride 102 98 - 110 [...] ratio 1.5 1.0 - 2.5 (calc) [facility] Bilirubin, total 0.6 0.2 - 1.2 mg/dL [facility] Alk phos 76 37 - 153 U/L [facility] AST 35 10 - 35 U/L [facility] ALT (SGPT) 23 6 - 29 U/L [facility] Blood 03/10/2024 1:05 PM FILLING MACHINE OPERATOR 03/10/2024 1:06 PM FILLING MACHINE OPERATOR us Paris Sandoval MD LAB BLOOD ORDERABLES Final R esult [facility] [address] [place] [address] * Dexa Axial Skeleton Bone Density 1 or 2 Site (01/27/2021 1:06 PM CDT) Anatomical Region Laterality Modality Body N/A Radiographic Cha ging Narrative 01/29/2021 1:44 PM CDT Patient Name: Emelyn Nicole Date of : 1940 Date of scan: 01/27/2021 Bone mineral density was performed on a HoloJanalakshmi Discovery Densitometer. ?? Based on machine cross-calibration [...] by the International Society of Clinical Densitometry. [id number] us Paris Sandoval MD IMG DXA PROCEDURES Final Res ult from Last 3 Months or Most Recently Relevant to Health Maintenance Insurance MEDICARE SOLUTIONS [facility] MEDICARE AET[employer] MEDICARE Care Teams Bottom Steep Tender Relationship Specialty Start Date End Date Cholo Joy MD [address] [place] [address] PCP - General 10/04/16
--- OUTSIDE RECORDS SUMMARY | 2024-06-03 13:50 | XMS_ITS | Continuity of Care Document ---
Author Organization [facility] Address [address] [place] [address] Phone Care Team Providers Care Ram Press Operator Name Role Phone Giovani Zepeda MD Unavailable Unavailable Procedures Procedure Date Office/outpatient visit,[facility] 2005 Advance Directives Directive Yes / No Effective Date File Name No Information Encounters Encounter Description Practice Location Reason(s) For Visit Diagnoses Date Provider Providers Copied on Encounter Office/outpat ient visit,[facility], [address] [place] [address], [id number], tel:[phone] [facility] No Information [address]. [address] [place] [address], [address], [id number] , . tel:[phone] Family History Family Member Type Diagnosis Age At Onset No Information Payers Payer name Insurance type Covered republican ID Authoriza titerrell(s) Cigna [place] CI [id number] Social History Type Description Quantity Date Captured [...]
--- OUTSIDE RECORDS SUMMARY | 2024-06-03 13:50 | XMS_ITS | Encounter Summary ---
Author Organization [facility] Address [address] [place] [address] Care Team Providers Care Mineral Surveying Technician Name Role Phone Cholo Joy MD Primary Care Provider +1- [phone] Encounter Details Date Type Department Care Team (Late st Contact Info) Description 02/11/2007 Outpatient Historical [facility] Flako Miller MD [address] [place] [address] Other and Unspecified Noninfectious Gastroenteritis and Colitis (Primary Dx) Social History Tobacco Use Types Packs/Day Years Used Date Smoking Tobacco: Never Assessed Comments Unknown Sex and Gender Information Value Date Recorded Sex Assigned at Not on file Legal Sex Female 5:07 AM WAX POURER Gender Identity Not on file Sexual Orientation Not on file documented as of this encounter Plan of Treatment Not on file documented as of this encounter Visit Diagnoses Diagnosis Other and unspecified noninfectious gastroenteritis and colitis(558.9)- Primary Other and unspecified noninfectious gastroenteritis and colitis documented in this encounter Care Teams Mineral Surveying Technician Relationship Specialty Start Date End Date Cholo Joy MD [address] [facility] [facility] [address] [place] [address] PCP - General 12/21/08 documented as of this encounter
--- OUTSIDE RECORDS SUMMARY | 2024-06-03 13:50 | XMS_ITS | Clinical Summary ---
Author Organization [facility] Address [address] Attn: Epic Prelude ADT [place] [address] Care Team Providers Care Yarn Comber Name Role Phone Cholo Joy MD Primary Care Provider +1- [phone] Social History Tobacco Use Types Packs/Day Years Used Date Smoking Tobacco: Never Assessed Comments Unknown Sex and Gender Information Value Date Recorded Sex Assigned at Not on file Legal Sex Female 5:07 AM RIPSAW GRADER Gender Identity Not on file Sexual Orientation [...] SCREENING Completed , 01/27/2021, 10/10/2018 Care Teams Yarn Comber Relationship Specialty Start Date End Date Cholo Joy MD [address] [facility] [address] [place] [address] PCP - General 12/21/08
--- OUTSIDE RECORDS SUMMARY | 2024-06-03 13:50 | XMS_ITS | Clinical Summary ---
Author Organization [facility] Address [address] [place] [address]. [place] [address] Care Team Providers Care Unit Assistant Name Role Phone Unavailable Primary Care Provider [...]
--- OUTSIDE RECORDS SUMMARY | 2024-06-03 13:51 | XMS_ITS | Referral Summary ---
Author Organization [facility] Address [address] [place] [address] Care Team Providers Care It Security Administrator Name Role Phone Cholo Joy MD Primary Care Prov ider Encounters Date Type Department Care Team Description 05/29/2024 1:06 PM PRESS SETUP OPERATOR - 05/29/2024 11:59 PM PRESS SETUP OPERATOR Hospital Encounter 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 Active [...] therapy. Assessment & Plan (04/10/2018 1:10 PM PRESS SETUP OPERATOR): Tolerating alendronate and will be due [...] numbness Assessment & Plan (04/10/2018 1:11 PM PRESS SETUP OPERATOR): Clinically her pain has improved with [...] ng multiple sites with positive rheumatoid factor ([facility]) 08/17/2015 Overview (11/13/2017): CCP+ Assessment & Plan [...] will follow up with me for a [id number]-[id number] visit in 3 months Assessment & Plan [...] 's diagnosis and I spent 25 minutes [id number]-tl-[id number] counseling her in this regard as she [...] on file Legal Sex Female 2:43 AM PRESS SETUP OPERATOR Gender Identity Female 11/16/2019 10:01 AM CDT Sexual Orientation Not on file Last Filed Vital Signs Vital Sign Reading Time Taken Comments Blood Pressure 135/67 05/07/2024 11:46 AM PRESS SETUP OPERATOR Pulse 60 05/07/2024 11:46 AM PRESS SETUP OPERATOR Temperature 36.8 ??C (98.2 ??F) 05/07/2024 11:[address] Respiratory Rate 16 12/05/2023 12:24 PM CDT Oxygen Saturation 100% 05/07/2024 11:46 AM PRESS SETUP OPERATOR Inhaled Oxygen Concentration - - Weight 52 kg (114 lb 9.6 oz) 05/07/2024 11:46 AM PRESS SETUP OPERATOR Height 160 cm (5' 3 ) 05/07/2024 11:46 AM PRESS SETUP OPERATOR Body Mass Index 20.3 05/07/2024 11:46 AM PRESS SETUP OPERATOR Plan of Treatment Not on file Procedures Procedure Name Priority Date/Time Associated Diagnosis Comments MRI CERVICAL SPINE WO CONTRAST Schedule Routine, Read Routine (OP Routine) 05/29/2024 1:46 PM PRESS SETUP OPERATOR Rheumatoid arthritis of cervical spine (HCC) ERYTHROCYTE SEDIMENTATION RATE Routine 03/10/2024 1:05 PM PRESS SETUP OPERATOR CRP (ACUTE PHASE) Routine 03/10/2024 1:0 5 PM PRESS SETUP OPERATOR 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) High risk medication use COMPREHENSIVE METABOLIC PANEL Routine 03/10/2024 1:05 PM PRESS SETUP OPERATOR 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) High risk medication use CBC WITH AUTO DIFFERENTIAL Routine 03/10/2024 1:05 PM PRESS SETUP OPERATOR 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 ??Stable osseous edema of the [...] Souza MD, PHD Narrative 05/29/2024 4:15 PM PRESS SETUP OPERATOR EXAMINATION: Magnetic resonance imaging (MRI) of [...] CBC with auto differential (03/10/2024 1:05 PM PRESS SETUP OPERATOR) WBC 7.1 3.8 - 10.8 Thousand/u [...] Diagnostics-S t Ifeanyi Blood 03/10/2024 1:05 PM PRESS SETUP OPERATOR 03/10/2024 1:06 PM PRESS SETUP OPERATOR Paris Sandoval MD LAB BLOOD ORDERABLES Final R esult Performing Organization Address City/[facility] Co de Phone Number [facility] [address] [place] [address] * Erythrocyte sedimentation rate (03/10/2024 1:05 PM PRESS SETUP OPERATOR) Erythrocyte sedimentation rate 19 < OR = 30 mm/h [facility] 03/10/2024 1:05 PM PRESS SETUP OPERATOR 03/10/2024 1:06 PM PRESS SETUP OPERATOR Paris Sandoval MD LAB BLOOD ORDERABLES Final R esult Performing Organization Address City/[facility]/ZIP Co de Phone Number [facility] [address] [place] [address] * CRP (acute phase) (03/10/2024 1:05 PM PRESS SETUP OPERATOR) Pathologist [facility] C-RP <3.0 <8.0 mg/L [facility] Blood 03/10/2024 1:05 PM PRESS SETUP OPERATOR 03/10/2024 1:06 PM PRESS SETUP OPERATOR us Paris Sandoval MD LAB BLOOD ORDERABLES Final R esult MARCO [facility] ManningAnaMaurisio [address], [place] [address] * (ABNORMAL) Comprehensive metabolic panel (03/10/2024 1:05 PM PRESS SETUP OPERATOR) [facility] Glucose 94 65 - 99 mg/dL [facility] Comment: ? Fasting reference interval BUN 26(H) 7 - 25 mg/dL [facility] Creatinine 1.27(H) 0.60 - 0.95 mg/dL [facility] eGFR 42(L) > OR = 60 mL/min/1.7 3m2 [facility] BUN/creat ratio 20 6 - 22 (calc) [facility] Sodium 139 135 - 146 mmol/L [facility] Potassium, pl 4.9 3.5 - 5.3 mmol/L [facility] Chloride 102 98 - 110 mmol/L [facility] CO2 30 20 - 32 mmol/L [facility] Calcium 9.7 8.6 - 10.4 mg/dL [facility] Protein, sr 6.9 6.1 - 8.1 g/dL [facility] Albumin 4.1 3.6 - 5.1 g/dL [facility] GLOBULIN 2.8 1.9 - 3.7 g/dL (calc) [facility] Alb/glob ratio 1.5 1.0 - 2.5 (calc) [facility] Bilirubin, total 0.6 0.2 - 1.2 mg/dL [facility] Alk phos 76 37 - 153 U/L [facility] AST 35 10 - 35 U/L [facility] ALT (SGPT) 23 6 - 29 U/L [facility] Blood 03/10/2024 1:05 PM PRESS SETUP OPERATOR 03/10/2024 1:06 PM PRESS SETUP OPERATOR us Paris Sandoval MD LAB BLOOD ORDERABLES Final R esult [facility] [address] [place] [address] * Dexa Axial Skeleton Bone Density 1 or 2 Site (01/27/2021 1:06 PM CDT) Anatomical Region Laterality Modality Body N/A Radiographic Cha ging Narrative 01/29/2021 1:44 PM CDT Patient Name: Emelyn Nicole Date of : 1940 Date of scan: 01/27/2021 Bone mineral density was performed on a HoloXimalaya Discovery Densitometer. ?? Based on machine cross-calibration [...] by the International Society of Clinical Densitometry. [id number] Paris Sandoval MD IMG DXA PROCEDURES Final Res ult from Last 3 Months or Most Recently Relevant to Health Maintenance Insurance MEDICARE SOLUTIONS AET MEDICARE AET MEDICARE Care Teams It Security Administrator Relationship Specialty Start Date End Date Cholo Joy MD [address] [place] [address] [facility] - General 10/04/16
--- OUTSIDE RECORDS SUMMARY | 2024-06-03 13:51 | XMS_ITS | Encounter Summary ---
Author Organization [facility] Address [address] [place] [address] Phone Care Team Providers Care Field Automobile Adjuster Name Role Phone Cholo Joy MD Primary [...] on file Legal Sex Female 2:43 AM HARDWOOD FLOOR REFINISHER Gender Identity Female 11/16/2019 10:01 AM CDT [...] filedocumented in this encounter Care Teams Field Automobile Adjuster Relationship Specialty Start Date End Date Cholo Joy MD [address] [place] [address] PCP - General 10/04/16 documented as of this encounter
--- OUTSIDE RECORDS SUMMARY | 2024-06-03 13:51 | XMS_ITS | Encounter Summary ---
Author Organization [facility] Address [address] [place] [address] Phone Care Team Providers Care Part Time Name Role Phone Cholo Joy MD Primary [...] on file Legal Sex Female 2:43 AM EARLY CHILDHOOD SERVICES COORDINATOR Gender Identity Female 11/16/2019 10:01 AM CDT [...] on filedocumented in this encounter Care Teams Part Time Relationship Specialty Start Date End Date Cholo Joy MD [address] [place] [address] PCP - General 10/04/16 documented as of this encounter
--- OUTSIDE RECORDS SUMMARY | 2024-06-03 13:51 | XMS_ITS | Encounter Summary ---
Author Organization [facility] Address [address] [place] [address] Phone Care Team Providers Care Statement Clerks Supervisor Name Role Phone Cholo Joy MD Primary [...] on file Legal Sex Female 2:43 AM BATCH UNIT TREATER Gender Identity Female 11/16/2019 10:01 AM CDT [...] on filedocumented in this encounter Care Teams Statement Clerks Supervisor Relationship Specialty Start Date End Date Cholo Joy MD [address] [place] [address] PCP - General 10/04/16 documented as of this encounter
--- OUTSIDE RECORDS SUMMARY | 2024-06-03 13:51 | XMS_ITS | Encounter Summary ---
Author Organization [facility] Address [address] [place] [address] Phone Care Team Providers Care Gasket Winder Name Role Phone Cholo Joy MD Primary [...] on file Legal Sex Female 2:43 AM PATIENT COORDINATOR Gender Identity Female 11/16/2019 10:01 AM [...] on filedocumented in this encounter Care Teams Gasket Winder Relationship Specialty Start Date End Date Cholo Joy MD [address] [place] [address] PCP - General 10/04/16 documented as of this encounter
[2024-06-06 13:58] LABS: NIL 0.12 IU/mL; Quantiferon TB Plus, 1T NEGATIVE (NEGATIVE); TB1-NIL 0.02 IU/mL; TB2-NIL 0.04 IU/mL
== END 2024-06-03 13:40 | disposition home or self-care (01) ==
LOC: ANHLAB 13:40
PROVIDERS: PCP Family Medicine Adolescent Medicine; Visit Provider Internal Medicine Critical Care Medicine
DX: R19.8 Other specified symptoms and signs involving the digestive system and abdomen (principal)
CPT/HCPCS: 36415; 86480

== ENCOUNTER 2024-06-19 13:34 | Outpatient (CLI) | payer MEDICARE, SELFPAY ==
--- OUTSIDE RECORDS SUMMARY | 2024-06-19 13:44 | XMS_ITS | Encounter Summary ---
Author Organization [facility] Address [address] [place] [address] Care Team Providers Care Assistant Account Manager Name Role Phone Cholo Joy MD Primary Care Provider +1- [phone] Encounter Details Date Type Department Care Team (Late st Contact Info) Description 04/01/2007 Outpatient Historical [facility] Flako Miller MD [address] [place] [address] Social History Tobacco Use Types Packs/Day Years Used Date Smoking Tobacco: Never Assessed Comments Unknown Sex and Gender Information Value Date Recorded Sex Assigned at Not on file Legal Sex Female 5:07 AM RUBBER TURNER Gender Identity Not on file Sexual Orientation Not on file documented as of this encounter Plan of Treatment Not on file documented as of this encounter Visit Diagnoses Not on filedocumented in this encounter Care Teams Assistant Account Manager Relationship Specialty Start Date End Date Cholo Joy MD [address] [place] [address] [address] [place] [id number] PCP - General 12/21/08 documented as of this encounter
--- OUTSIDE RECORDS SUMMARY | 2024-06-19 13:44 | XMS_ITS | Continuity of Care Document ---
Author Organization [facility] Address [address] [place] [address] Phone Care Team Providers Care Air Export Logistics Manager Name Role Phone Giovani Zepeda MD Unavailable Unavailable Procedures Procedure Date Office/outpatient visit,[facility] 2005 Advance Directives Directive Yes / No Effective Date File Name No Information Encounters Encounter Description Practice Location Reason(s) For Visit Diagnoses Date Provider Providers Copied on Encounter Office/outpat ient visit,[facility], [address] [place] [address], [id number], tel:[phone] [facility] No Information [address] Kately[address] [place]. [address] [place] [address], [address], [id number] , . tel:[phone] Family History Family Member Type Diagnosis Age At Onset No Information Payers Payer name Insurance type Covered constitution party ID Authoriza titerrell(s) [employer] CI [id number] Social History Type Description Quantity Date Captured [...]
--- OUTSIDE RECORDS SUMMARY | 2024-06-19 13:44 | XMS_ITS | Encounter Summary ---
Author Organization [facility] Address [address] [place] [address] Phone Care Team Providers Care Marketing Analytics Manager Name Role Phone Cholo Joy MD [...] on file Legal Sex Female 2:43 AM GYROSCOPIC ENGINEERING TECHNICIAN Gender Identity Female 11/16/2019 10:01 AM CDT [...] on filedocumented in this encounter Care Teams Marketing Analytics Manager Relationship Specialty Start Date End Date Cholo Joy MD [address] [place] [address] PCP - General 10/04/16 documented as of this encounter
--- OUTSIDE RECORDS SUMMARY | 2024-06-19 13:44 | XMS_ITS | Encounter Summary ---
Author Organization [facility] Address [address] [place] [address] Phone Care Team Providers Care Air Duct Mechanic Name Role Phone Cholo Joy MD Primary [...] on file Legal Sex Female 2:43 AM RESEARCH HOME ECONOMIST Gender Identity Female 11/16/2019 10:01 AM CDT [...] on filedocumented in this encounter Care Teams Air Duct Mechanic Relationship Specialty Start Date End Date Cholo Joy MD [address] [place] [address] PCP - General 10/04/16 documented as of this encounter
--- OUTSIDE RECORDS SUMMARY | 2024-06-19 13:44 | XMS_ITS | Encounter Summary ---
Author Organization [facility] Address [address] [place] [address] Care Team Providers Care Cytology Laboratory Manager Name Role Phone Cholo Joy MD Primary Care Provider +1- [phone] Encounter Details Date Type Department Care Team (Late st Contact Info) Description 02/11/2007 Outpatient Historical [facility] Flako Miller MD [address] [place] [address] Other and Unspecified Noninfectious Gastroenteritis and Colitis (Primary Dx) Social History Tobacco Use Types Packs/Day Years Used Date Smoking Tobacco: Never Assessed Comments Unknown Sex and Gender Information Value Date Recorded Sex Assigned at Not on file Legal Sex Female 5:07 AM LADLE REPAIRER Gender Identity Not on file Sexual Orientation Not on file documented as of this encounter Plan of Treatment Not on file documented as of this encounter Visit Diagnoses Diagnosis Other and unspecified noninfectious gastroenteritis and colitis(558.9)- Primary Other and unspecified noninfectious gastroenteritis and colitis documented in this encounter Care Teams Cytology Laboratory Manager Relationship Specialty Start Date End Date Cholo Joy MD [address] [facility] [address] [place] [address] PCP - General 12/21/08 documented as of this encounter
--- OUTSIDE RECORDS SUMMARY | 2024-06-19 13:44 | XMS_ITS | Clinical Summary ---
Author Organization [facility] Address [address] [facility] Attn: Epic Prelude ADT [place] [address] Care Team Providers Care Lead Cargo Mover Name Role Phone Cholo Joy MD Primary Care Provider +1- [phone] Social History Tobacco Use Types Packs/Day Years Used Date Smoking Tobacco: Never Assessed Comments Unknown Sex and Gender Information Value Date Recorded Sex Assigned at Not on file Legal Sex Female 5:07 AM PAVING BED MAKER Gender Identity Not on file Sexual Orientation [...] SCREENING Completed , 01/27/2021, 10/10/2018 Care Teams Lead Cargo Mover Relationship Specialty Start Date End Date Cholo Joy MD [address] [facility] [address] [place] [address] PCP - General 12/21/08
--- OUTSIDE RECORDS SUMMARY | 2024-06-19 13:44 | XMS_ITS | Referral Summary ---
Author Organization [facility] Address [address] [place] [address] Care Team Providers Care Criminology Teacher Name Role Phone Cholo Joy MD Primary Care Prov ider Encounters Date Type Department Care Team Description 06/13/2024 Telephone [facility] Rheumatology [address] [place] [address] Medical Office Building 2 [address] [place] [address] Paris Sandoval MD 06/13/2024 Telephone [facility] Rheumatology [address] [facility] 5th [place] [address] [place] [address] Sole Mujica, Latasha 05/30/2024 Orders Only [facility] Scanning, Provider 05/29/2024 1:06 PM CASING MATERIAL WEIGHER - 05/29/2024 11:59 PM CASING MATERIAL WEIGHER Hospital Encounter [facility] [address] [place] [address] Rheumatoid arthritis of cervical spine (HCC) Discharge Disposition: Discharge to home or self care 05/07/2024 11:40 AM CASING MATERIAL WEIGHER Office Visit [facility] Rheumatology [address] [facility] Medical Office Building [address] [place] [address] Paris Sandoval MD 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 600 mg twice daily Active omega-3 fatty acids 500 mg capsule 1200 mg 3 times daily Active multivit-latent print examiner als/ferrous fum (MULTI VITAMIN ORAL) daily. Active LORazepam (ATIVAN) 0.5 mg tablet Take 1 tablet (0.5 mg total) by mouth every 6 (six) hours as needed for anxiety Active famotidine (PEPCID) 20 mg tablet 2 (two) times a day 2 Active ipratropium (ATROVENT) 42 mcg (0.06 %) nasal spray every morning 3 Active gabapentin (NEURONTIN) 300 mg capsule [address] (CYMBALTA) 30 mg capsule Take 1 capsule (30 mg total) by mouth daily 4 Active folic acid (FOLVITE) 1 mg tablet TAKE 1 TABLET(1000 MCG) BY MOUTH DAILY 90 tablet 2 4 Active adalimumab (HUMIRA, CF, PEN) 40 mg/0.4 mL pen injector kit Inject 0.4 mL (40 mg total) under the skin every 14 (fourteen) days 6 each 1 4 Active methotrexate 2.5 mg tablet TAKE 3 TABLETS(7.5 MG) BY MOUTH 1 TIME EVERY 7 DAYS 38 tablet 2 4 Active atorvastatin (LIPITOR) 20 mg tablet Take 1 tablet (20 mg total) by mouth daily 4 Active predniSONE (DELTASONE) 2.5 mg tablet TAKE 1 TABLET(2.5 MG) BY MOUTH DAILY 90 tablet 1 5 Active alendronate (FOSAMAX) 35 mg tablet TAKE 1 TABLET BY MOUTH EVERY 7 DAYS WITH FULL GLASS OF WATER AND ON AN EMPTY STOMACH. DO NOT EAT OR LIE DOWN FOR 30 MINUTES 12 tablet 3 5 Active alendronate (FOSAMAX) 35 mg tablet TAKE 1 TABLET BY MOUTH EVERY 7 DAYS WITH FULL GLASS OF WATER AND ON AN EMPTY STOMACH. DO NOT EAT OR LIE DOWN FOR 30 MINUTES 12 tablet 3 4 06/16/19 25 Discontinued predniSONE (DELTASONE) 2.5 mg tabletIndicati ons:autoimmune disease Take 1 tablet (2.5 mg) by mouth daily 90 tablet 1 4 06/16/19 25 Discontinued Active Problems Problem Noted Date Diagnosed [...] these are entirely stable. Age-related osteoporosis wit hohunter current pathological fracture 04/10/2018 Overview (02/11/2019): DXA [...] therapy. Assessment & Plan (04/10/2018 1:10 PM CASING MATERIAL WEIGHER): Tolerating alendronate and will be due for [...] numbness Assessment & Plan (04/10/2018 1:11 PM CASING MATERIAL WEIGHER): Clinically her pain has improved with physical [...] ng multiple sites with positive rheumatoid factor ([facility]/HCC) 08/17/2015 Overview (11/13/2017): CCP+ Assessment & Plan [...] will follow up with me for a pjjb-ob-hnzu visit in 3 months Assessment & Plan [...] 's diagnosis and I spent 25 minutes uqff-be-zxve counseling her in this regard as she [...] on file Legal Sex Female 2:43 AM CASING MATERIAL WEIGHER Gender Identity Female 11/16/2019 10:01 AM CDT Sexual Orientation Not on file Last Filed Vital Signs Vital Sign Reading Time Taken Comments Blood Pressure 135/67 05/07/2024 11:46 AM CASING MATERIAL WEIGHER Pulse 60 05/07/2024 11:46 AM CASING MATERIAL WEIGHER Temperature 36.8 C (98.2 F) 05/07/2024 11:46 AM CASING MATERIAL WEIGHER Respiratory Rate 16 12/05/2023 12:24 PM CDT Oxygen Saturation 100% 05/07/2024 11:46 AM CASING MATERIAL WEIGHER Inhaled Oxygen Concentration - - Weight 52 kg (114 lb 9.6 oz) 05/07/2024 11:46 AM CASING MATERIAL WEIGHER Height 160 cm (5' 3 ) 05/07/2024 11:46 AM CASING MATERIAL WEIGHER Body Mass Index 20.3 05/07/2024 11:46 AM CASING MATERIAL WEIGHER Plan of Treatment Not on file Procedures Procedure Name Priority Date/Time Associated Diagnosis Comments SCAN - RADIOLOGY/IMAGING 05/30/2024 MRI CERVICAL SPINE WO CONTRAST Schedule Routine, Read Routine (OP Routine) 05/29/2024 1:46 PM CASING MATERIAL WEIGHER Rheumatoid arthritis of cervical spine (HCC) DEXA AXIAL SKELETON BONE DENSITY 1 OR MORE SITES Schedule Routine, Read Routine (OP Routine) 01/27/2021 1:06 PM CDT Age-related osteoporosis without current pathological fracture from Last 3 Months or Most Recently Relevant to Health Maintenance Results * SCAN - RADIOLOGY/IMAGING (05/30/2024) Anatomical Region Laterality Modality Other us Provider Scanning Final Result * MRI Cervical Spine WO Contrast (05/29/2024 1:46 PM CASING MATERIAL WEIGHER) Anatomical Region Laterality Modality Spine N/A Magnetic Resonan ce 05/29/2024 2:42 PM CASING MATERIAL WEIGHER Impressions 05/29/2024 4:15 PM CASING MATERIAL WEIGHER 1. Stable osseous edema of the right [...] Souza MD, PHD Narrative 05/29/2024 4:15 PM CASING MATERIAL WEIGHER EXAMINATION: Magnetic resonance imaging (MRI) of the [...] IMG MRI PROCEDURES Final Res ult * Dexa Axial Skeleton Bone Density 1 or 2 Site (01/27/2021 1:06 PM CDT) Anatomical Region Laterality Modality Body N/A Radiographic Cha ging Narrative 01/29/2021 1:44 PM CDT Patient Name: Emelyn Nicole Date of : 1940 Date of scan: 01/27/2021 Bone mineral density was performed on a [employer] Discovery Densitometer. Based on machine cross-calibration and precision studies [...] deviation discrepant relative to one adjacent vertebra. Clinical correlation is recommended. Please note the previous [...] by the International Society of Clinical Densitometry. [id number] Paris Sandoval MD IMG DXA PROCEDURES Final Res ult from Last 3 Months or Most Recently Relevant to Health Maintenance Insurance MEDICARE SOLUTIONS [facility] MEDICARE [facility] MEDICARE Care Teams Criminology Teacher Relationship Specialty Start Date End Date Cholo Joy MD [address] [place] [address] PCP - General 10/04/16
--- OUTSIDE RECORDS SUMMARY | 2024-06-19 13:44 | XMS_ITS | Encounter Summary ---
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
--- OUTSIDE RECORDS SUMMARY | 2024-06-19 13:44 | XMS_ITS | Clinical Summary ---
Author Organization [facility] Address [address] [place] [address] Care Team Providers Care License Issuer Name Role Phone Cholo Joy MD Primary [...] capsule 1200 mg 3 times daily Active multivit-silk examiner als/ferrous fum (MULTI VITAMIN ORAL) daily. [...] therapy. Assessment & Plan (04/10/2018 1:10 PM STORE KEEPER): Tolerating alendronate and will be due for [...] numbness Assessment & Plan (04/10/2018 1:11 PM STORE KEEPER): Clinically her pain has improved with physical [...] ng multiple sites with positive rheumatoid factor ([facility]) 08/17/2015 Overview (11/13/2017): CCP+ Assessment & [...] will follow up with me for a ljee-vr-kjeg visit in 3 months Assessment & Plan [...] 's diagnosis and I spent 25 minutes wjwv-bw-gjzm counseling her in this regard as she [...] Type Department Care Team Description 06/13/2024 Telephone [facility] Rheumatology [address] [facility] Office Building [address] [place] [address] Paris Sandoval MD 06/13/2024 Telephone [facility] Rheumatology [address] [facility] 5th [place] [address] [place] [address] Sole Mujica, Justice 05/30/2024 Orders Only [facility] Scanning, Provider 05/29/2024 1:06 PM STORE KEEPER - 05/29/2024 11:59 PM STORE KEEPER Hospital Encounter [facility] Imaging [address] [place] [address] Rheumatoid arthritis of cervical spine (HCC) Discharge Disposition: Discharge to home or self care 05/07/2024 11:40 AM STORE KEEPER Office Visit [facility] Rheumatology [address] [place] [address] Office Building [address] [place] [address] Paris Sandoval MD 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); Rheumatoid arthritis of cervical spine (HCC); High risk medication use 04/16/2024 Telephone [facility] [address] [facility] [address] [place] [address] Sammy Nickerson RPh from Last 3 Months Surgical History Surgery [...] on file Legal Sex Female 2:43 AM STORE KEEPER Gender Identity Female 11/16/2019 10:01 AM CDT Sexual Orientation Not on file Obstetrics History Last Filed Vital Signs Vital Sign Reading Time Taken Comments Blood Pressure 135/67 05/07/2024 11:46 AM STORE KEEPER Pulse 60 05/07/2024 11:46 AM STORE KEEPER Temperature 36.8 C (98.2 F) 05/07/2024 11:46 AM STORE KEEPER Respiratory Rate 16 12/05/2023 12:24 PM CDT Oxygen Saturation 100% 05/07/2024 11:46 AM STORE KEEPER Inhaled Oxygen Concentration - - Weight 52 kg (114 lb 9.6 oz) 05/07/2024 11:46 AM STORE KEEPER Height 160 cm (5' 3 ) 05/07/2024 11:46 AM STORE KEEPER Body Mass Index 20.3 05/07/2024 11:46 AM STORE KEEPER Plan of Treatment Health Maintenance Due Date Last Done Comments Depression Screening 1940 Fall Risk Assessment 1940 DTaP/Tdap/Td Vaccine (1 - Tdap) 11/07/1951 Hepatitis B Screening 1958 Pneumococcal vaccine 65+ (1 of 2 - PCV) 11/07/1959 Zoster Vaccine (1 of 2) 11/07/1959 Well Visit 65+ 2005 Osteoporosis Screening-Bone Density Scan 01/27/2023 01/27/2021, 10/10/2018 Influenza Vaccine (#1) 2023 01/31/2017 Procedures Procedure Name Priority Date/Time Associated Diagnosis Comments SCAN - RADIOLOGY/IMAGING 05/30/2024 MRI CERVICAL SPINE WO CONTRAST Schedule Routine, Read Routine (OP Routine) 05/29/2024 1:46 PM STORE KEEPER Rheumatoid arthritis of cervical spine (HCC) DEXA [...] Cervical Spine WO Contrast (05/29/2024 1:46 PM STORE KEEPER) Anatomical Region Laterality Modality Spine N/A Magnetic Resonan ce 05/29/2024 2:42 PM STORE KEEPER Impressions 05/29/2024 4:15 PM STORE KEEPER 1. Stable osseous edema of the right [...] Souza MD, PHD Narrative 05/29/2024 4:15 PM STORE KEEPER EXAMINATION: Magnetic resonance imaging (MRI) of the [...] Bone mineral density was performed on a [employer] Discovery Densitometer. Based on machine cross-calibration and [...] by the International Society of Clinical Densitometry. [id number] us Paris Sandoval MD IMG DXA PROCEDURES Final Res ult from Last 3 Months or Most Recently Relevant to Health Maintenance Insurance MEDICARE SOLUTIONS [facility] MEDICARE Address: [address] [address] [place] [address] [facility] MEDICARE [employer] MEDICARE Care Teams License Issuer Relationship Specialty Start Date End Date Cholo Joy MD [address] [place] [address] PCP - General 10/04/16
--- OUTSIDE RECORDS SUMMARY | 2024-06-19 13:44 | XMS_ITS | Clinical Summary ---
Author Organization [facility] Address [address] [place] [address] Care Team Providers Care Concrete Laborer Name Role Phone Unavailable Primary Care Provider [...] - 1-dose 75+ series) 11/07/2015 COVID-19 Vaccine (2023-2 5 season) 2023 Influenza Adult (#1) 2024 [...]
--- OUTSIDE RECORDS SUMMARY | 2024-06-19 13:44 | XMS_ITS | Encounter Summary ---
Author Organization [facility] Address [address] [place] [address] Care Team Providers Care Printing Table Worker Name Role Phone Cholo Joy MD Primary Care Provider +1- [phone] Encounter Details Date Type Department Care Team (Late st Contact Info) Description 02/18/2007 Outpatient Historical [facility] Flako Miller MD [address] [place] [address] [place] [address] [place] Ulcerative (Chronic) Colitis (CMS/HCC) (Primary Dx) Social History Tobacco Use Types Packs/Day Years Used Date Smoking Tobacco: Never Assessed Comments Unknown Sex and Gender Information Value Date Recorded Sex Assigned at Not on file Legal Sex Female 5:07 AM HOST/HOSTESS Gender Identity Not on file Sexual Orientation Not on file documented as of this encounter Plan of Treatment Not on file documented as of this encounter Visit Diagnoses Diagnosis [place] ulcerative (chronic) colitis(556.6) (CMS/HCC)- Primary [place] ulcerative (chronic) colitis documented in this encounter Care Teams Printing Table Worker Relationship Specialty Start Date End Date Cholo Joy MD [address] [facility] [address] [place] [address] PCP - General 12/21/08 documented as of this encounter
--- OUTSIDE RECORDS SUMMARY | 2024-06-19 13:44 | XMS_ITS | Encounter Summary ---
Author Organization [facility] Address [address] [place] [address] Phone Care Team Providers Care Axle Bearing Polisher Name Role Phone Cholo Joy MD Primary [...] on file Legal Sex Female 2:43 AM ART GALLERY DIRECTOR Gender Identity Female 11/16/2019 10:01 AM CDT [...] on filedocumented in this encounter Care Teams Axle Bearing Polisher Relationship Specialty Start Date End Date Cholo Joy MD [address] [place] [address] PCP - General 10/04/16 documented as of this encounter
--- OUTSIDE RECORDS SUMMARY | 2024-06-19 13:44 | XMS_ITS | Encounter Summary ---
Author Organization [facility] Address [address] [place] [address] Phone Care Team Providers Care Training Program Developer Name Role Phone Cholo Joy MD Primary [...] on file Legal Sex Female 2:43 AM LINE HELPER Gender Identity Female 11/16/2019 10:01 AM CDT [...] on filedocumented in this encounter Care Teams Training Program Developer Relationship Specialty Start Date End Date Cholo Joy MD [address] [place] [address] PCP - General 10/04/16 documented as of this encounter
--- NOTE | 2024-06-20 11:53 | WPDSIXMINUTE ---
Six Minute Walk Procedure Procedure Performed Pulmonary Stress Test (6 min walk) Six Minute Walk Six Minute Walk: This 6 minute walk test was carried out with the patient breathing ambient air. The pre walk baseline oxyhemoglobin saturation was 99%. The patient walked 320 m with no stops during testing. During the walk the oxyhemoglobin saturation remained in the range of 98% to 99%. Impression: No evidence of oxyhemoglobin desaturation on this testing.
--- NOTE | 2024-06-20 11:55 | P.PCNPFT_ITS ---
PFT Procedure Performed PFT Procedure Performed Spirometry with Pre/Post Bronchodilator Plethysmography (Lung Vol) Diffusing Cap (DLCO) Flow Vol Loop PFT Interpretation Lung volumes were assessed using the body plethysmography method and were found to be within normal limits. Spirometry results indicated a normal vital capacity and FEV1, but the FEV1/FVC ratio was reduced to 51%, which is indicative of obstructive airway disease. Post-bronchodilator administration, there was no significant improvement in expiratory flow rates. The reduced lung diffusion capacity, along with a normal alveolar volume, suggests the possibility of emphysema with preserved lung volume, anemia, or a pulmonary vascular abnorm ality. The flow-volume loop also supports a diagnosis of obstructive airway disease. When compared to the previous study conducted in 2023, the post- bronchodilator FEV1 has increased by 0.5 L, whereas the lung diffusion capacity has decreased by approximately 15% of the predicted value. Impression: Mild obstructive airway disease with no significant response to bronchodilators during this testing, and a moderately reduced lung diffusion capacity.
== END 2024-06-19 13:35 | disposition home or self-care (01) ==
PROVIDERS: PCP Family Medicine Adolescent Medicine; Visit Provider Internal Medicine Critical Care Medicine
DX: R94.2 Abnormal results of pulmonary function studies (principal)
CPT/HCPCS: 94060; 94618; 94726; 94729

== ENCOUNTER 2024-08-19 11:17 | Outpatient (CLI) | payer MEDICARE, SELFPAY ==
--- NOTE | ~2024-08-19 | MM_ITS ---
EXAMINATION: MM screening [place] BI w camila HISTORY: Screening TECHNIQUE: Craniocaudal and mediolateral oblique 3-D tomosynthesis images were obtained and synthetic 2-D images were generated. CAD analysis was submitted and interpreted. COMPARISON: Comparison to multiple prior studies sequentially, with oldest reviewed study dated 01/05. BREAST PARENCHYMAL COMPOSITION: Dense: The breasts are extremely dense, which lowers the sensitivity of mammography. FINDINGS: There is no evidence of suspicious mass, calcification, or architectural distortion to sugg est malignancy in either breast. There has been no suspicious interval change. IMPRESSION: 1. No mammographic evidence of malignancy. 2. Recommend routine screening mammography in one year. BI-RADS Category 1: Negative Reviewed, dictated and finalized at location A.
== END 2024-08-19 11:18 | disposition home or self-care (01) ==
LOC: MICIMG 11:19
PROVIDERS: Visit Provider Family Medicine Adolescent Medicine
DX: Z12.31 Encounter for screening mammogram for malignant neoplasm of breast (principal)
CPT/HCPCS: 77063; 77067

== ENCOUNTER 2025-03-03 14:06 | Outpatient (CLI) | payer MEDICARE, SELFPAY ==
--- NOTE | ~2025-03-03 | XR_ITS ---
EXAMINATION: XR chest 2V, 03/03/2025 14:09 CONCHE OPERATOR HISTORY: Cough x 3 wks, hx of lung inf 11/2024, non smoker COMPARISON: No comparisons available. Technique: 2 views obtained. Findings: Minimal basilar infiltrates. No pneumothorax. Heart is normal size. Mediastinal and hilar contours are within normal limits. Bony thorax no acute abnormality. Impression: Early bilateral pneumonia Reviewed, dictated and finalized at location P. HE OPERATOR Impression: Early bilateral pneumonia
== END 2025-03-03 14:07 | disposition home or self-care (01) ==
LOC: MICIMG 14:07
PROVIDERS: PCP Family Medicine Adolescent Medicine; Visit Provider Family Medicine Adolescent Medicine
DX: J18.9 Pneumonia, unspecified organism (principal)
CPT/HCPCS: 71046

== ENCOUNTER 2025-03-09 10:31 | Outpatient (CLI) | payer MEDICARE, SELFPAY ==
--- NOTE | ~2025-03-09 | XR_ITS ---
EXAMINATION: XR shoulder RT min 2V DATE: 03/09/2025 10:46 INDICATION: Right shoulder pain TECHNIQUE: AP internally and externally rotated, AP oblique externally rotated and transscapular Y views of the affected shoulder were obtained. COMPARISON: None FINDINGS: No fracture. Slight cephalad subluxation of the humeral head with respect to the glenoid with moderate cephalad predominant nonuniform joint space narrowing. Small anterior and lateral subacromial spurs. Cystic changes along the greater tuberosity which can be seen in setting of chronic rotator cuff disease. Mild acromioclavicular osteoarthritis with small heterotopic ossicle along the cephalad margin of the joint space. Soft tissues are unremarkable. There is most portion of the right lung are clear. IMPRESSION: Slight cephalad subluxation of the humeral head with respect to the glenoid with interval progression of now moderate right glenohumeral osteoarthritis. 2. Irregular cortical contour to the greater tuberosity suggesting chronic rotator cuff disease and change of reported prior rotator cuff repair. Reviewed, dictated and finalized at location A. CENTER ADMINISTRATOR IMPRESSION: Slight cephalad subluxation of the humeral head with respect to the glenoid wit h interval progression of now moderate right glenohumeral osteoarthritis. 2. Irregular cortical contour to the greater tuberosity suggesting chronic rota tor cuff disease and change of reported prior rotator cuff repair.
== END 2025-03-09 10:32 | disposition home or self-care (01) ==
LOC: MICIMG 10:32
PROVIDERS: PCP Family Medicine Adolescent Medicine; Visit Provider Family Medicine Adolescent Medicine
DX: M19.011 Primary osteoarthritis, right shoulder (principal); M25.811 Other specified joint disorders, right shoulder
CPT/HCPCS: 73030